=== PATIENT | female | born 1950 | race Caucasian/White ===

== ENCOUNTER 2017-06-25 07:36 | Inpatient (IN) | payer OTHER ==
[2017-06-04 11:18] VITALS: BMI 31.0
--- NOTE | 2017-06-04 11:44 | PAT Medication Instructions ---
Service Date Jun 04, 2017. Current Home Medication List Cholecalciferol (D3), 3,000 INTERUNIT PO QAM Citalopram (Citalopram Hydrobromide), 40 MG PO QAM Cyanocobalamin (B12), 1 TAB PO QAM Levothyroxine Sodium (Synthroid), 25 MCG PO QAM Sumatriptan Succinate (Imitrex), 100 MG PO UD PRN for Headache Medication Instructions For Your Scheduled Surgery - Hold the following medications the morning of surgery: Cholecalciferol (D3), 3,000 INTERUNIT PO QAM Cyanocobalamin (B12), 1 TAB PO QAM - Take the following medications the morning of surgery with a sip of water: Citalopram (Citalopram Hydrobromide), 40 MG PO QAM Levothyroxine Sodium (Synthroid), 25 MCG PO QAM Sumatriptan Succinate (Imitrex), 100 MG PO UD PRN for Headache (if needed) - Take the following medications as scheduled the night before surgery: Sumatriptan Succinate (Imitrex), 100 MG PO UD PRN for Headache (if needed) If you have any questions please call us at [phone] or [phone] or [phone]
--- NOTE | 2017-06-04 12:38 | DIAGNOSTIC IMAGING REPORT ---
CHEST 2 VIEWS ROUTINE CLINICAL HISTORY: Preoperative chest COMPARISON STUDY: 11/23/2015 FINDINGS: The cardiac and mediastinal contours are normal. There is no evidence of focal pulmonary consolidation. There is no evidence of failure. No pleural effusions are visualized.[ There are multiple old left-sided rib fractures. These were not visualized the prior 2016 study. IMPRESSION: No active disease in the chest. Electronically signed by: Antoni Chaudhary M.D. 06/04/2017 12:36 PM Dictated Date/Time: 06/04/2017 12:35 PM
[2017-06-04 13:29] LABS: PTT PATIENT 26.8 SECONDS (21.0-31.0)
[2017-06-04 13:43] LABS: BASO % 0.2 %; BASO ABS # 0.01 K/uL (0-0.2); EOS % 1.9 %; HEMATOCRIT 37.3 % (37-47); HEMOGLOBIN 12.8 g/dL (12.0-16.0); IG# 0.01 K/uL (0.00-0.02); LYMPH % 32.8 %; LYMPH ABS # 1.69 K/uL (1.2-3.4); MEAN CELL VOLUME 91.9 fL (80-100); MEAN CORPUSCULAR HEMOGLOBIN 31.5 pg (25-34); MEAN CORPUSCULAR HGB CONC 34.3 g/dl (32-36); MEAN PLATELET VOLUME 11.1 fL (7.4-10.4); MONO % 10.1 %; MONO ABS # 0.52 K/uL (0.11-0.59); NEUT % 54.8 %; NEUT ABS # 2.83 K/uL (1.4-6.5); PLATELET COUNT 97 K/uL (130-400); RED CELL DISTRIBUTION WIDTH CV 13.7 % (11.5-14.5); RED CELL DISTRIBUTION WIDTH SD 45.9 fL (36.4-46.3); WHITE BLOOD COUNT 5.16 K/uL (4.8-10.8)
[2017-06-04 14:02] LABS: HEMOGLOBIN A1C 5.1 % (4.5-5.6)
[2017-06-04 14:38] LABS: ALBUMIN 3.5 gm/dl (3.4-5.0); CALCIUM 8.9 mg/dl (8.5-10.1); CREATININE 0.67 mg/dl (0.60-1.20)
--- NOTE | 2017-06-12 10:30 | HISTORY & PHYSICAL EXAMINATION ---
DATE OF ADMISSION: 06/25/2017 CHIEF COMPLAINT: Left knee pain. HISTORY OF PRESENT ILLNESS: Natalia is a 67-year-old female with a multiple year history of left knee pain. The patient has pain with her daily activities. She has limited standing and walking tolerance. Pain is worse with weightbearing. The patient has worsening pain going up the stairs. She rates her pain as 7/10. She has had injections and anti-inflammatories without relief. She has failed conservative treatment and is scheduled for left knee replacement with Dr. Taylor. PAST MEDICAL HISTORY: Thyroid disease. She denies heart disease, diabetes, or DVT. PAST SURGICAL HISTORY: . SOCIAL HISTORY: The patient denies alcohol or tobacco use. She lives in a single sony home. She is and works part-time. FAMILY HISTORY: Negative for DVT. MEDICATIONS: Levothyroxine 25 mcg daily. ALLERGIES: PENICILLIN CAUSES DIARRHEA. REVIEW OF SYSTEMS: See HPI. Ten other systems reviewed, all negative. PHYSICAL EXAMINATION: VITAL SIGNS: Height 5 foot 4 inches, weight 188 pounds, BMI 32. GENERAL: This is a well-developed, well-nourished female who is alert and oriented x3. Mood and affect are appropriate. HEENT: Normocephalic, atraumatic. Mucous membranes are moist and intact. NECK: Supple without lymphadenopathy. HEART: Regular rate and rhythm without murmurs, rubs, or gallops. LUNGS: Clear to auscultation without wheezes or rhonchi. ABDOMEN: Soft and nontender. Bowel sounds are equal and active. EXTREMITIES: No ecchymosis, redness, or warmth. Thigh and calf are soft and nontender. She has moderate effusion. She has no distal edema. She has varus deformity. Range of motion is from 0-115 degrees with +1 laxity. She is neurovascularly intact with +5/5 strength. X-RAY EXAMINATION: AP and lateral views show joint space narrowing and osteophyte formation. IMPRESSION: Degenerative joint disease, left knee. PLAN: The patient will be admitted for a left total knee arthroplasty. We will plan on aspirin for DVT prophylaxis and she will have [facility] for home physical therapy upon discharge. Her PCP is Dr. Maldonado.
[2017-06-25] VITALS (9 sets, daily range): BP systolic 98–122; BP diastolic 61–76; PULSE 59–84; TEMP 36.5–36.8; O2SAT 94–99; Ht 162.6 cm; Wt 84.0 kg
[~2017-06-25] VITALS: Ht 162.6 cm; Wt 84.0 kg
[~2017-06-25 07:36] MED LIST: ACETAMINOPHEN 500 MG TAB PO SCH; BUPIVACAINE 0.5 % 5 MG/1 ML PF 10ML VIAL ONE; CEFAZOLIN 2000MG IV PUSH 15 ML IV SCH; CHOL1CAP27 PO; CLX40 PO; CYAN100073 PO; CeleBREX 200 MG CAP PO SCH; DEXAMETHASONE 4 MG TAB PO SCH; FAMOTIDINE 20 MG TAB PO SCH; GABAPENTIN 300 MG CAP PO SCH; LACTATED RINGER'S 1000ML 1,000 ML IV SCH; LACTATED RINGER'S 1000ML 500 ML IV SCH; ROPIVACAINE 5MG/ML 30 ML 150 MG, BUPIVACAINE 0.5% MPF INJ 30 ML, EpINEphrine HCL INJ 0.... INFIL SCH; SUMA25TA12 PO; SYN25 PO
[2017-06-25] MEDS ORDERED: MIDAZOLAM HCL 1 MG/ML 2ML VIAL ONE (07:57)
[2017-06-25] MEDS ORDERED: FENTANYL CITRATE INJ 50 MCG/1 ML 2 ML VIAL ONE (07:57)
[2017-06-25] MEDS ORDERED: FENTANYL CITRATE INJ 50 MCG/1 ML 2 ML VIAL IV PRN (08:30)
[2017-06-25] MEDS ORDERED: ONDANSETRON INJ 2 MG/ML 2 ML VIAL IV PRN ×2 (08:30→11:30)
[2017-06-25] MEDS ORDERED: EpHEDrine SULFATE INJ 50 MG/ML AMP IV PRN (08:30)
[2017-06-25] MEDS ORDERED: ATROPINE SULFATE 0.1 MG/ML 5ML SYR IV PRN (08:30)
[2017-06-25 08:35] LABS: HEMATOCRIT 36.6 % (37-47); HEMOGLOBIN 12.6 g/dL (12.0-16.0); MEAN CELL VOLUME 91.7 fL (80-100); MEAN CORPUSCULAR HEMOGLOBIN 31.6 pg (25-34); MEAN PLATELET VOLUME 10.5 fL (7.4-10.4); PLATELET COUNT 109 K/uL (130-400); RED CELL DISTRIBUTION WIDTH CV 13.7 % (11.5-14.5); RED CELL DISTRIBUTION WIDTH SD 45.4 fL (36.4-46.3); WHITE BLOOD COUNT 4.02 K/uL (4.8-10.8)
[2017-06-25 08:40] LABS: MEAN CORPUSCULAR HGB CONC 34.4 g/dl (32-36)
--- NOTE | 2017-06-25 08:47 | History & Physical Bridge Note ---
H&P Re-Evaluation Bridge Note: I have examined the patient, reviewed the History & Physical and in the interval since the performance of the History & Physical I have noted the following changes of clinical significance: No changes noted
[2017-06-25] MEDS ORDERED: ORTHO JOINT ANESTHETIC ONE (09:34)
[2017-06-25] MEDS ORDERED: POVIDONE-IODINE OP SOLN 30 ML BTL ONE (09:35)
[2017-06-25] MEDS ORDERED: BACITRACIN 50000 UNIT VIAL ONE (09:35)
[2017-06-25] MEDS: TRANEXAMIC ACID INJ 1,000 MG x 2 Bags IV SCH ×4 (09:36→13:59)
[2017-06-25] MEDS ORDERED: PROPOFOL IV EMULSION 10 MG/ML 20 ML VIAL IV ONE (10:06)
--- NOTE | 2017-06-25 10:44 | [facility] Post Operative Brief Note ---
Immediate Operative Summary Operative Date Jun 25, 2017. Pre-Operative Diagnosis Left Knee Degenerative Joint Disease Post-Operative Diagnosis Left Knee Degenerative Joint Disease Procedure(s) Performed Left Total Knee Arthroplasty Surgeon Dr. Taylor Radiographer Angiogram Surgeon(s) Chuy Puri PA-C Estimated Blood Loss 10 ml Findings Consistent with Post-Op Diagnosis Specimens A. Left Knee bone and tissue Anesthesia Type MAC Spinal Regional Complication(s) none Disposition Accompanied Pt To Recover: no Disposition: Recovery Room / PACU
--- NOTE | 2017-06-25 11:10 | OPERATIVE REPORT ---
DATE OF OPERATION: 06/25/2017 PREOPERATIVE DIAGNOSIS: Osteoarthritis, left knee. POSTOPERATIVE DIAGNOSIS: Osteoarthritis, left knee. PROCEDURE: Left total knee arthroplasty. SURGEON: Dr. Taylor. DIFFERENTIAL SPECIALIST: Chuy Nieves PA-C. ANESTHESIA: Spinal. COMPLICATIONS: None. IMPLANTS USED: Femoral size 3, tibia size 3, tibial poly 13, patella size 36. DISPOSITION: Recovery room, stable. OPERATION AND FINDINGS: Following induction of spinal anesthesia, the patient's left leg was prepped and draped in the usual sterile manner. Limb was exsanguinated with an Esmarch bandage and tourniquet was inflated to 350 mmHg. A longitudinal incision was made anteriorly. Subcutaneous tissue was sharply dissected. Electrocautery was used for hemostasis. Prepatellar bursa was incised and median parapatellar incision was performed. Patella was everted and the knee was flexed. Fat pad was removed to aid in visualization and the anterior and posterior cruciate ligaments were removed. The medial face of the tibia was cleared of soft tissue first with a Bovie and a Torrez elevator. This tissue was retracted posteriorly using a blunt Hohmann. A Marcus retractor was used to expose the synovium above on the anterior aspect of the femur and this was removed down to bone. The PSI guide was placed on the distal femur and two pins were placed anteriorly and kept in position and two additional pins were placed distally and removed. The distal femoral cutting block was placed in position and the distal femoral cut was used in the +0 setting. Next, the cutting block was removed and the femoral 3 block was placed in the distal end of the femur. Care was taken to ensure appropriate external rotation and feeler gauge was used to ensure no notching would occur. The femoral block was centered on the distal femur and in the medial and lateral direction and was fixed using two bone screws. The gold pins were then removed. The oscillating saw was used to create the bone cuts and the distal femoral cutting block was removed and the reciprocating saw was used to further trim the femoral cuts as well as a deep in the area for the trochlear groove. Next, posterior condyle remnants were removed. Following this, a meniscal clamp and knife were utilized to remove the anterior portion of both medial and lateral meniscus. The proximal tibia PSI guide was placed into position and the proximal tibial cutting guide was screwed into position. The extra medullary alignment guide was utilized to ensure appropriate alignment. The proximal tibia was cut and the proximal tibial cutting block was removed and this bone fragment was removed. The appropriate guide was used to perform the notch cut on the distal femur and a lamina blacksmith helper and a cochlear knife were utilized to finish both medial and lateral meniscectomies to remove any remnants of the posterior or anterior cruciate ligaments. Following this, the distal femoral component was impacted into position and blunt Miriam was used to sublux the tibia anteriorly. The proximal tibia was sized and a 3 tibial tray was chosen as the size to be used. This was put into position and appropriate external rotation and a double check with extramedullary alignment guide was performed. The canal for the tibial stem was prepared first with a 17 mm drill and then the punch and a mallet and the trial tibial poly was placed. A 13 was chosen the size to be used. It was brought to extension and the patella was prepared with the patellar reamer. A 36 component was chosen the size to be used. The trial component was placed and knee was taken through a full range of motion and there was found to be no lateral subluxation of the tibia. No lateral release was required. The trials were all removed. The final components were obtained and assembled. Cement was mixed. The knee was thoroughly irrigated and the ortho mix was injected about the knee joint. The final components were cemented into position. After thoroughly suctioning and drying the bone ends, all excess cement was removed. The knee was held in extension while the cement hardened. The wound was irrigated and closed over a Hemovac drain. #1 Vicryl was used to close the extensor mechanism. Subcutaneous tissues closed using 0 Dexon. Skin was closed with ceci. Sterile dressing of Adaptic, 4 x 4's, sterile Webril, and Elvin was applied. The patient tolerated the procedure well. Due to the complex nature of the procedure, the entire surgery was performed with the operational assistance of DELORIS Nieves. The study assistant, under direct supervision, was involved in the actual performance of all aspects of the surgical procedure including hemostasis, tissue retraction and incision, instrument management, patient positioning, and wound closure. I attest to the content of the Intraoperative Record and any orders documented therein. Any exception s are noted below.
[2017-06-25] MEDS ORDERED: ALUMINUM/MAGNESIUM/SIMETH (MAALOX MAX) 30 ML UDC PO PRN (11:30)
[2017-06-25] MEDS ORDERED: ZOLPIDEM TARTRATE 5 MG TAB PO PRN (11:30)
[2017-06-25] MEDS ORDERED: MoRPHine SULFATE 2 MG/ML CARP IV PRN (11:30)
[2017-06-25] MEDS ORDERED: MAGNESIUM HYDROXIDE SUSP 30 ML UDC PO PRN (11:30)
[2017-06-25] MEDS ORDERED: METOCLOPRAMIDE HCL INJ 5 MG/ML 2 ML VIAL IV PRN (11:30)
--- NOTE | 2017-06-25 11:55 | DIAGNOSTIC IMAGING REPORT ---
L KNEE 1 OR 2 VIEWS ROUTINE CLINICAL HISTORY: Postop examination KNEE ARTHROPLASTY. COMPARISON: None. DISCUSSION: There are postsurgical changes of a total left knee arthroplasty and patellar resurfacing. The femoral and tibial components appear well seated. Overlying surgical drains are evident. There is air within soft tissues consistent with recent surgery. IMPRESSION: Postsurgical changes of a total left knee arthroplasty. Electronically signed by: Antoni Chaudhary M.D. 06/25/2017 11:54 AM Dictated Date/Time: 06/25/2017 11:53 AM
--- NOTE | 2017-06-25 12:25 | Anesthesiology Progress Note ---
Anesthesia Post Op Note Date & Time Jun 25, 2017 at 12:25 Vital Signs Pain Intensity: 0 Vital Signs Past 12 Hours Date Time Temp Pulse Resp B/P (MAP) Pulse Ox O2 Delivery O2 Flow Rate FiO2 06/25/17 12:20 75 16 117/78 96 Nasal Cannula 2 06/25/17 12:10 78 16 124/66 97 Nasal Cannula 2 06/25/17 12:00 37.4 76 16 111/73 98 Nasal Cannula 2 06/25/17 11:50 74 16 121/75 98 Nasal Cannula 2 06/25/17 11:40 76 16 117/73 97 Nasal Cannula 2 06/25/17 11:30 63 16 100/74 99 Nasal Cannula 2 06/25/17 11:20 65 16 108/67 99 Nasal Cannula 2 06/25/17 11:14 36.5 77 16 99/59 97 Nasal Cannula 2 06/25/17 08:20 97 Room Air Notes Mental Status: alert / awake / arousable, participated in evaluation Pt Amnestic to Procedure: Yes Nausea / Vomiting: adequately controlled Pain: adequately controlled Airway Patency, RR, SpO2: stable & adequate BP & HR: stable & adequate Hydration State: stable & adequate Neuraxial Anesthesia: was administered, sensory block is resolving Anesthetic Complications: no major complications apparent
[2017-06-25] MEDS: D5W AND 1/2NSS + 20MEQ KCL 1,000 ML IV SCH ×2 (13:58→22:56)
[2017-06-25] MEDS: KETOROLAC TROMETHAMINE 15 MG/ML VIAL IV. SCH ×2 (13:58→20:30)
[2017-06-25] MEDS: ACETAMINOPHEN 500 MG TAB PO SCH ×2 (15:54→22:55)
[2017-06-25] MEDS: OXYCODONE HCL IR 5 MG TAB (IMMEDIATE RELEASE) PO PRN (17:29)
[2017-06-25] MEDS: CEFAZOLIN IV 2,000 MG in SYRINGE 0 ML IV SCH (17:30)
[2017-06-25] MEDS: FERROUS GLUCONATE 324 MG TAB PO SCH (17:30)
[2017-06-25] MEDS ORDERED: CEFAZOLIN IV 2,000 MG in DEXTROSE 5% 50ML 50 ML IV SCH (18:00)
[2017-06-25] MEDS: DOCUSATE SODIUM 100 MG CAP PO SCH (20:29)
[2017-06-25] MEDS: ASPIRIN 81 MG ECTAB PO SCH (20:30)
[2017-06-26] MEDS: KETOROLAC TROMETHAMINE 15 MG/ML VIAL IV. SCH ×2 (01:37→09:10)
[2017-06-26] MEDS: CEFAZOLIN IV 2,000 MG in SYRINGE 0 ML IV SCH (01:38)
[2017-06-26 03:19] VITALS: BP 116/70; PULSE 66; TEMP 36.6; O2SAT 97
[2017-06-26] MEDS ORDERED: LEVOTHYROXINE 25 MCG TAB PO SCH (06:00)
[2017-06-26 07:09] LABS: HEMATOCRIT 31.6 % (37-47); HEMOGLOBIN 10.8 g/dL (12.0-16.0); MEAN CELL VOLUME 91.9 fL (80-100); MEAN CORPUSCULAR HEMOGLOBIN 31.4 pg (25-34); MEAN CORPUSCULAR HGB CONC 34.2 g/dl (32-36); RED CELL DISTRIBUTION WIDTH CV 13.6 % (11.5-14.5); RED CELL DISTRIBUTION WIDTH SD 45.5 fL (36.4-46.3); WHITE BLOOD COUNT 9.64 K/uL (4.8-10.8)
[2017-06-26 07:12] LABS: MEAN PLATELET VOLUME 11.4 fL (7.4-10.4); PLATELET COUNT 84 K/uL (130-400)
[2017-06-26 07:16] VITALS: BP 114/75; PULSE 57; TEMP 36.8; O2SAT 96
--- NOTE | 2017-06-26 07:16 | Orthopedic Progress Note ---
Orthopedic Progress Note Date of Service Jun 26, 2017. Subjective Post OP Day: 1 Reports: feeling well Objective N/V intact, dressing C/D/I (Hemovac in place), toes mobile Date Time Temp Pulse Resp B/P (MAP) Pulse Ox O2 Delivery O2 Flow Rate FiO2 06/26/17 03:19 36.6 66 18 116/70 (85) 97 Room Air 06/25/17 23:15 36.8 69 17 111/67 (82) 95 Room Air 06/25/17 19:35 Room Air 06/25/17 19:08 36.5 63 16 107/71 (83) 94 Room Air 06/25/17 15:50 Nasal Cannula 06/25/17 15:41 36.8 84 16 102/65 (77) 96 Nasal Cannula 2.0 06/25/17 14:39 59 16 98/61 (73) 97 Nasal Cannula 2.0 06/25/17 14:06 Nasal Cannula 2.0 06/25/17 14:05 36.8 78 16 122/76 (91) 96 Nasal Cannula 2.0 06/25/17 14:04 96 Nasal Cannula 2.0 06/25/17 13:40 81 16 110/64 (79) 97 Nasal Cannula 2.0 06/25/17 13:12 36.8 77 16 116/73 (87) 99 Nasal Cannula 2.0 06/25/17 12:30 37 75 16 113/68 96 Nasal Cannula 2 06/25/17 12:20 75 16 117/78 96 Nasal Cannula 2 06/25/17 12:10 78 16 124/66 97 Nasal Cannula 2 06/25/17 12:00 37.4 76 16 111/73 98 Nasal Cannula 2 06/25/17 11:50 74 16 121/75 98 Nasal Cannula 2 06/25/17 11:40 76 16 117/73 97 Nasal Cannula 2 06/25/17 11:30 63 16 100/74 99 Nasal Cannula 2 06/25/17 11:20 65 16 108/67 99 Nasal Cannula 2 06/25/17 11:14 36.5 77 16 99/59 97 Nasal Cannula 2 06/25/17 08:20 97 Room Air Laboratory Results 24 Hours: Test 06/25/17 08:14 06/26/17 06:08 Hematocrit 36.6 % 31.6 % Hemoglobin 12.6 g/dL 10.8 g/dL Assessment & Plan Assessment: 67 yo female stable POD #1 s/p left TKA, thrombocytopenia noted(present pre-op as well) Plan: 1. Med management 2. DVT prophy;axis- ASA, SCDs 3. PT/OT 4. D/C planning- home w/ HH today/tomorrow
[2017-06-26] MEDS ORDERED: ACET-24 PO (07:18)
[2017-06-26] MEDS ORDERED: ASPI-320 PO (07:18)
[2017-06-26] MEDS ORDERED: RXC5 PO (07:18)
[2017-06-26] MEDS ORDERED: CLB200 PO (07:18)
--- NOTE | 2017-06-26 07:20 | Discharge Instructions ---
Discharge Instructions Date of Service Jun 26, 2017. Admission Reason for Admission: Left Knee Osteoarthritis Discharge Discharge Diagnosis / Problem: Left knee arthritis Discharge Goals Goal(s): Decrease discomfort, Improve function Activity Recommendations Activity Limitations: as noted below Weightbearing Status: Left weightbearing (as tolerated) . Instructions / Follow-Up Instructions / Follow-Up ACTIVITY RECOMMENDATIONS: SELF CARE INSTRUCTIONS AFTER TOTAL KNEE REPLACEMENT A. You may need to continue a physical therapy program after discharge from the hospital. There are several options available to you. Your doctor will assist you in selecting the best one for you. 1. An out-patient facility 2 to 3 times a week for therapy or home therapy. 2. Continue working on all exercises taught to you in the hospital. Your goals should be to increase bending of your knee to 90 degrees and beyond and to fully straighten your knee. B. You may progress at your own pace from walking with a walker or crutches to a cane; then to no assistive devices. C. Make walking a part of your daily routine. Be up as much as comfortable with rest periods throughout the day. Rest with leg elevation is very important. Use the ice wrap frequently for the first 3-4 weeks. D. There are no restrictions on activities. You may ride in a car, shop, participate in cannon pinion adjuster and all social activities. E. Wear the long elastic stockings (MARTÍN hose) 20 hours a day for 2 weeks after surgery. They can be removed several times a day for laundering and for a bath. F. You may shower, no tub baths until cleared by your doctor. SPECIAL CARE INSTRUCTIONS: VERY IMPORTANT TO READ AND REVIEW A. There are a few signs you need to watch for after you are home. Call [facility] if you notice any of the followin. Increased severe knee pain. Some pain is expected especially when you exercise. 2. Increased swelling in your leg or knee; pain or swelling of the calf muscle in either lower leg. 3. Any fluid drainage from the incision. 4. Shortness of breath or chest pain. B. Please call [facility] at if you have any concerns or questions about your operation or recovery. The doctor or his nurse will return your call promptly. C. You must take antibiotics before dental work, bladder, bowel or other surgery. Your doctor will provide you with a permanent care to carry describing this precaution. IMPORTANT: * REMEMBER TO TAKE ASPIRIN, 81 MG, TWICE DAILY FOR 4 WEEKS UNLESS OTHERWISE DIRECTED. THIS IS YOUR BLOOD THINNER. * HIGH RISK PATIENTS MAY BE PRESCRIBED A STRONGER BLOOD THINNER. THIS WILL BE PROVIDED AT DISCHARGE. * CALL IF INCREASED PAIN, REDNESS, DRAINAGE OR FEVER GREATER THAT 101. * WEAR MARTÍN HOSE 20 HOURS PER DAY FOR 2 WEEKS. * HOME HEALTH TO REMOVE DRESSING AND DRAIN POST-OP DAY 2. FOLLOW UP VISIT: If appointment is not already scheduled: Please call [facility] to make a follow-up appointment for 2 weeks after your surgery at . Current Hospital Diet Patient's current hospital diet: Regular Diet Discharge Diet Recommended Diet: Regular Diet Procedures Procedures Performed: Left Total Knee Arthroplasty Pending Studies Studies pending at discharge: no Laboratory Results Hemoglobin A1c Test 06/04/17 11:53 Range/Units Estimated Average Glucose 100 mg/dl Hemoglobin A1c 5.1 4.5-5.6 % Medical Emergencies . Who to Call and When: Medical Emergencies: If at any time you feel your situation is an emergency, please call 911 immediately. . Non-Emergent Contact Non-Emergency issues call your: Surgeon Call Non-Emergent contact if: temperature is above 101.5, your pain is not controlled, wound has increased drainage, wound has increased redness . "Provider Documentation" section prepared by Chuy Nieves PA-C. . [facility] Monitoring Program Search Results: patient reviewed within database, no issues identified
--- NOTE | 2017-06-26 07:28 | Anesthesiology Progress Note ---
Anesthesia Post Op Note Date & Time Jun 26, 2017 at 07:27 Vital Signs Pain Intensity: 3.0 Vital Signs Past 12 Hours Date Time Temp Pulse Resp B/P (MAP) Pulse Ox O2 Delivery O2 Flow Rate FiO2 06/26/17 07:16 36.8 57 17 114/75 (88) 96 Room Air 06/26/17 03:19 36.6 66 18 116/70 (85) 97 Room Air 06/25/17 23:15 36.8 69 17 111/67 (82) 95 Room Air 06/25/17 19:35 Room Air Notes Mental Status: alert / awake / arousable, participated in evaluation Pt Amnestic to Procedure: Yes Nausea / Vomiting: adequately controlled Pain: adequately controlled Airway Patency, RR, SpO2: stable & adequate BP & HR: stable & adequate Hydration State: stable & adequate Neuraxial Anesthesia: was administered, sensory block resolved Anesthetic Complications: no major complications apparent
[2017-06-26] MEDS ORDERED: DEXAMETHASONE INJ 10 MG in SYRINGE 0 ML IV ONE (07:30)
[2017-06-26 07:39] LABS: CALCIUM 7.9 mg/dl (8.5-10.1); CREATININE 0.77 mg/dl (0.60-1.20); POTASSIUM 4.5 mmol/L (3.5-5.1)
[2017-06-26] MEDS ORDERED: CYANOCOBALAMIN 500 MCG TAB (VIT B-12) PO SCH (09:00)
[2017-06-26] MEDS ORDERED: CITALOPRAM 40 MG TAB PO SCH (09:00)
[2017-06-26] MEDS ORDERED: MULTIVITAMIN TAB PO SCH (09:00)
[2017-06-26] MEDS ORDERED: CHOLECALCIFEROL 1000 INTER.UNIT TAB PO SCH (09:00)
[2017-06-26] MEDS ORDERED: PANTOprazole SOD 40 MG TAB PO SCH (09:00)
[2017-06-26] MEDS: ACETAMINOPHEN 500 MG TAB PO SCH ×2 (09:11→16:34)
[2017-06-26] MEDS: FERROUS GLUCONATE 324 MG TAB PO SCH ×2 (09:11→13:25)
[2017-06-26] MEDS: DOCUSATE SODIUM 100 MG CAP PO SCH (09:12)
[2017-06-26] MEDS: ASPIRIN 81 MG ECTAB PO SCH (09:12)
[2017-06-26] MEDS: OXYCODONE HCL IR 5 MG TAB (IMMEDIATE RELEASE) PO PRN ×2 (09:15→16:35)
[2017-06-26 11:09] VITALS: BP 98/60; PULSE 61; TEMP 36.7; O2SAT 96
[2017-06-26 14:59] VITALS: BP 118/74; PULSE 54; TEMP 36.8; O2SAT 97
[2017-06-26 16:38] VITALS: BP 118/74; PULSE 54; TEMP 36.8; O2SAT 97
[2017-06-26] MEDS ORDERED: CeleBREX 200 MG CAP PO SCH (21:00)
--- NOTE | 2017-07-01 16:01 | DISCHARGE SUMMARY ---
CHIEF COMPLAINT: Left knee pain. Please see complete history and physical examination. HOSPITAL COURSE: The patient underwent left total knee arthroplasty without complication. She tolerated the procedure well and was discharged to recovery room in stable condition. Her postoperative course was relatively uneventful. Her postoperative pain was reasonably well controlled with a combination of spinal anesthesia, adductor canal block, intraoperative joint injection, IV, and oral pain medications. She was started on aspirin for DVT prophylaxis. She also utilized MARTÍN stockings and SCDs for additional prophylaxis. Her H&H was stable and did not require transfusion. Her surgical drain will be discontinued by home nursing on postoperative day 2. She tolerated postop physical therapy reasonably well where she was bending her knee and ambulating appropriately. Discharged home on postoperative day 1. She will continue her physical therapy at home. She will continue her aspirin for DVT prophylaxis and follow up in our office in approximately 10-14 days for initial postop evaluation.
== END 2017-06-26 17:25 | disposition home health service (06) | DRG 470 ==
LOC: C.ACU 07:36 → C.3E 09:25 → ENRESERV 11:58
PROC: 0SRD0J9 Replacement of Left Knee Joint with Synthetic Substitute, Cemented, Open Approach (ICD-10-PCS; principal; 2017-06-25 10:00)
DX: M17.12 Unilateral primary osteoarthritis, left knee (principal); E07.9 Disorder of thyroid, unspecified; D69.6 Thrombocytopenia, unspecified

== ENCOUNTER 2019-12-08 11:36 | Inpatient (IN) ==
[2019-12-08] MEDS ORDERED: LORazepam 1 MG/2 ML VIAL IV STA (13:29)
[2019-12-08] MEDS ORDERED: SODIUM CHLORIDE 0.9% 1000ML 1,000 ML IV SCH (13:30)
--- NOTE | 2019-12-08 14:28 | CT Scan Report ---
CT head/brain wo con CLINICAL HISTORY: 69 years-old Female with insomnia, dizzy, nausea. Acute dizziness with nausea and insomnia TECHNIQUE: Multiple axial CT images of the head were obtained without contrast. A dose lowering tech nique was utilized adhering to the principles of ALARA. CT DOSE: 537.48 mGy.cm COMPARISON: Head CT 02/12/2016 FINDINGS: No acute intracranial hemorrhage, midline shift, intracranial mass, hydrocephalus, territorial ischem ia or abnormal extra-axial collection. Mild age-related involutional changes. Senescent calcification s of the lentiform nuclei. Mild patchy white matter hypodensities suggest probable chronic microvascu lar ischemic changes. Calcifications of the falx cerebri. Cerebral vascular calcifications. The calvarium is intact. The paranasal sinuses, mastoid air cells, and middle ear cavities are clear . IMPRESSION: No acute intracranial abnormality. ACT 112: Negative or not required by law. The above report was generated using voice recognition software. It may contain grammatical, syntax o r spelling errors. Electronically signed by: Mitch Jordan M.D. 12/08/2019 2:27 PM
[2019-12-08 14:50] LABS: Albumin Level 4.3 gm/dl (3.4-5.0); BUN Creatinine Ratio 17.4 (10-20); Calcium 8.8 mg/dl (8.5-10.1); Creatinine Clr Calc Pharmacy 58.3 ml/min; Est GFR (African American) 74.6; Est GFR (Non-African American) 64.3; Potassium 3.3 mmol/L (3.5-5.1)
[2019-12-08 14:51] LABS: Basophils # (auto) 0.01 K/uL (0-0.2); Basophils % (auto) 0.2 %; Eosinophils # (auto) 0.03 K/uL (0-0.5); Eosinophils % (auto) 0.7 %; Hematocrit (blood only) 43.2 % (37-47); Hemoglobin 14.6 g/dL (12.0-16.0); Lymphocytes # (auto) 0.89 K/uL (1.2-3.4); Lymphocytes % (auto) 21.9 %; Mean Corpuscular Hemoglobin 32.7 pg (25-34); Mean Corpuscular Hgb Conc 33.8 g/dL (32-36); Mean Corpuscular Volume 96.6 fL (80-100); Mean Platelet Volume 9.7 fL (7.4-10.4); Monocytes # (auto) 0.43 K/uL (0.11-0.59); Monocytes % (auto) 10.6 %; Neutrophils % (auto) 66.6 %; Platelet Count 77 K/uL (130-400); RDW Coefficient of Variation 14.9 % (11.5-14.5); Red Blood Count 4.47 M/uL (4.2-5.4); White Blood Count 4.06 K/uL (4.8-10.8)
[2019-12-08] MEDS ORDERED: MULTI-VITAMIN INFUSION 10 ML, THIAMINE HCL 100 MG, FOLIC ACID 1 MG in SODIUM CHLORIDE 0... IV ONE (14:59)
[2019-12-08 15:00] LABS: Albumin Globulin Ratio 1.2 (0.9-2); Bilirubin,Total 1.7 mg/dl (0.2-1); Globulin 3.7 gm/dl (2.5-4.0); Thyroid Stimulating Hormone 0.326 uIu/ml (0.300-4.500)
--- NOTE | 2019-12-08 15:30 | Emergency Department Note ---
Impression & Plan Alcohol intoxication, Anxiety, Insomnia, Decreased oral intake, Light-headed ED Provider Note Provider: Huber Zhou MD DATE OF SERVICE:12/08/2019 CHIEF COMPLAINT: Insomnia, decreased appetite, lightheadedness anxiety HISTORY OF PRESENT ILLNESS: Patient is a 69-year-old female with a history of hypothyroidism, migraine, alcohol abuse presenting with her today over the past 2 weeks has had significant insomnia not really sleeping at night as well as feeling disoriented lightheaded. Patient denies any significant trauma. Patient states social stress due to the current pandemic. States she is fallen off the wagon of 4 years and started drinking yesterday last drink she initially reported to me was yesterday evening about 6 ounces of hard liquor. States she has had complicated alcohol withdrawal in the past including seizure. Patient denies any pain at this time. Denies significant nausea. States she just does not feel hungry and feels quite unsettled and is pacing in the room. Denies any SI or HI to me. Has not talked to her doctor about this before. Patient states she has been stable on her dose of citalopram. No other recent medication changes. States she has been doing virtual AA. States sometimes when she closes eyes she is seeing weird figures and persons. REVIEW OF SYSTEMS: A total of 10 review of systems was obtained and negative except as stated above in the HPI. 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 PERRL NECK: Trachea midline. Supple. ENT: Mucous membranes pink and moist LUNGS: Airway patent. No retractions. Breath sounds clear HEART: Regular rate and rhythm. No chest wall tenderness ABDOMEN: Soft and non-tender, without guarding or rebound. SKIN: Acyanotic, warm, dry, without rashes EXTREMITIES: Without swelling, tenderness or deformity NEUROLOGICAL: No focal deficits. No aphasia. No facial droop but mildly slurred speech. Ambulatory. Psych: Denies SI or HI. States sometimes with close denies using some visual hallucinations but denies auditory elucidation. Endorses significant anxiety. EK bpm sinus rhythm with sinus arrhythmia. No PVC. No acute ST segment elevation or depression. V1 V2 T wave inversion. Normal QTC CONTINUOUS CARDIAC MONITORING: was ordered and showed a heart rate of 78 bpm in normal sinus rhythm Patient's laboratory studies and imaging reviewed. Differential includes Infection, dehydration, metabolic abnormality, hypo/hyperglycemia, electrolyte disturbance, anemia, hypoxia, cardiac sources, intracerebral event, toxicologic, neurologic, as well as other pathologies. IMPRESSION/MEDICAL DECISION MAKIN-year-old female history of alcohol issues presents here due to insomnia decreased appetite and lightheadedness as well as anxiety last several weeks. States she started abuse alcohol again yesterday. Seemed a little bit anxious and with some slightly slurred speech upon evaluation here and does appear unfortunately to have a detectable alcohol level of 204. Discussed with her again her lack alcohol intake and the timing keeps changing. Does have a complicated history of alcohol withdrawal. CT without acute intracranial changes noted her head bleed per radiology. Did review the images myself. Blood work shows evidence of alcohol intoxication with mild hypokalemia and mild transaminitis. Patient not having significant abdominal discomfort and doubt acute biliary tract obstruction. No significant cytosis actually slightly leukopenic. Patient given some Ativan with improvement of her anxiety is now resting in bed on reassessment. Question if her symptoms are related to worsen anxiety or alcohol abuse. Does have anion gap and I question if this is related to decreased oral intake with her alcohol abuse. Thrombocytopenia is noted again question if is related to liver function. Patient has a benign abdomen without any tenderness. Given a banana bag and some IV fluid. Given the patient's hallucination changes are significant history of complicated alcohol withdrawal as well as decreased intake recently do not feel that discharge home would be successful with likely rapid return. Discussed with patient and who are in agreement with staying for further evaluation. Discussed with the hospitalist further evaluation. Patient may benefit for inpatient rehab. DIAGNOSIS: Lightheadedness, insomnia, decreased intake, alcohol intoxication, anxiety DISPOSITION: Hospitalist will evaluate Patient was agreeable with this plan. Past Med/Surg History Medical History Anxiety Cirrhosis PER RECORDS; NO RECENT ISSUES Depression Hiatal hernia Hypothyroidism Migraine Obesity Seizure 2008 X 1 EPISODE; NO ISSUES SINCE Surgical History History of section History of colonoscopy History of total knee replacement LEFT TKA= 06/25/17= SAB X 1 ATTEMPT + PNB AT [facility] Family History Father Alzheimer disease Irregular heart rhythm Mother Age related osteoporosis Social History (Updated 12/08/19 @ 17:43 by Mary Anthony PA-C) Smoking Status: Former smoker Second Hand Exposure: No; Hx Alcohol Use: Yes Alcohol type: hard liquor Alcohol type Comment: Beni Gotti, drinking from the bottle Hx Substance Use: No Preferred Language: Setswana Communication Ability: Effective 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 Beliefs That Will Affect Care: None Current Living Situation: Spouse Other Information That Helps Us Care for You: No Feels Safe at Home: Yes Safety Concerns: Feels Safe At This Time Assistive Devices: None Allergies Allergies Allergy/AdvReac Type Severity Reaction Status Date / Time Penicillins AdvReac Severe SEVERE Verified 12/08/19 13:26 DIARRHEA Home Meds Home Medications Medication Instructions Recorded Confirmed cholecalciferol (vitamin D3) 3,000 unit PO QAM 12/02/17 12/08/19 [Vitamin D3] citalopram 40 mg PO QAM 12/02/17 12/08/19 cyanocobalamin (vitamin B-12) 1,000 mcg PO QAM 12/02/17 12/08/19 [Vitamin B-12] levothyroxine 25 mcg PO QAM 12/02/17 12/08/19 sumatriptan succinate [Imitrex] 1 tab PO UD PRN 12/02/17 12/08/19 aspirin [Ecotrin Low Strength] 81 mg PO DAILY 12/08/19 12/08/19 Results & Data (ED) Vital Signs Vital Signs - 24 hr 12/08/19 11:50 12/08/19 14:40 12/08/19 15:29 Temperature 36.5 C Temperature Source Oral Pulse Rate 96 H Pulse Rate [Apical] 87 Respiratory Rate 20 16 Respiratory Effort / Characteristics Respiratory Depth Respiratory Pattern Blood Pressure 130/81 Blood Pressure [Right Arm] 118/80 Blood Pressure Mean 97 Blood Pressure Mean [Right Arm] 92 Pulse Oximetry 96 93 95 Oxygen Delivery Method Room Air Room Air Room Air Sepsis Recent Fever Within 48 Hours No Sepsis New/Unexplained Change in Mental Status N/A Sepsis Action Taken by Nursing No Action Required 12/08/19 16:00 Temperature Temperature Source Pulse Rate Pulse Rate [Apical] 91 H Respiratory Rate 20 Respiratory Effort / Characteristics Non-Labored Spontaneous Respiratory Depth Normal Respiratory Pattern Regular Blood Pressure Blood Pressure [Right Arm] 110/63 Blood Pressure Mean Blood Pressure Mean [Right Arm] 78 Pulse Oximetry 96 Oxygen Delivery Method Room Air Sepsis Recent Fever Within 48 Hours Sepsis New/Unexplained Change in Mental Status Sepsis Action Taken by Nursing Laboratory Data Result diagrams: 12/08/19 14:14 12/08/19 14:14 Lab Results 12/08/19 12/08/19 12/08/19 Range/Units 14:14 14:14 14:14 WBC 4.06 L (4.8-10.8) K/uL RBC 4.47 (4.2-5.4) M/uL Hgb 14.6 (12.0-16.0) g/dL Hct 43.2 (37-47) % MCV 96.6 (80-100) fL MCH 32.7 (25-34) pg MCHC 33.8 (32-36) g/dL RDW Std Deviation 53.0 H (36.4-46.3) fL RDW Coeff of Artur 14.9 H (11.5-14.5) % Plt Count 77 L (130-400) K/uL MPV 9.7 (7.4-10.4) fL Immature Gran % (Auto) 0.0 % Neut % (Auto) 66.6 % Lymph % (Auto) 21.9 % [place] % (Auto) 10.6 % Eos % (Auto) 0.7 % Baso % (Auto) 0.2 % Neut # (Auto) 2.70 (1.4-6.5) K/uL Lymph # (Auto) 0.89 L (1.2-3.4) K/uL [place] # (Auto) 0.43 (0.11-0.59) K/uL Eos # (Auto) 0.03 (0-0.5) K/uL Baso # (Auto) 0.01 (0-0.2) K/uL Immature Gran # (Auto) 0.00 (0.00-0.02) K/uL PT (9.0-12.0) Seconds INR (0.9-1.1) Sodium 137 (136-145) mmol/L Potassium 3.3 L (3.5-5.1) mmol/L Chloride 97 L (98-107) mmol/L Carbon Dioxide 19 L (21-32) mmol/L Anion Gap 21.0 H (3-11) BUN 16 (7-18) mg/dl Creatinine 0.90 (0.6-1.2) mg/dl Est Cr Clr Drug Dosing 58.3 ml/min Est GFR ( Amer) 74.6 Est GFR (Non-Af Amer) 64.3 BUN/Creatinine Ratio 17.4 (10-20) Glucose 80 (70-99) mg/dl Calcium 8.8 (8.5-10.1) mg/dl Phosphorus (2.5-4.9) mg/dl Magnesium (1.8-2.4) mg/dl Total Bilirubin 1.7 H (0.2-1) mg/dl AST 161 H (15-37) U/L ALT 136 H (12-78) U/L Alkaline Phosphatase 81 (45-117) U/L Troponin I (0-0.045) ng/ml Total Protein 8.0 (6.4-8.2) gm/dl Albumin 4.3 (3.4-5.0) gm/dl Globulin 3.7 (2.5-4.0) gm/dl Albumin/Globulin Ratio 1.2 (0.9-2) Lipase (73-393) U/L TSH 0.326 (0.300-4.500) uIu/ml Salicylates Cancelled Acetaminophen Cancelled Ethyl Alcohol mg/dL (0-3) mg/dl 12/08/19 12/08/19 12/08/19 Range/Units 14:14 14:14 14:14 WBC (4.8-10.8) K/uL RBC (4.2-5.4) M/uL Hgb (12.0-16.0) g/dL Hct (37-47) % MCV (80-100) fL MCH (25-34) pg MCHC (32-36) g/dL RDW Std Deviation (36.4-46.3) fL RDW Coeff of Artur (11.5-14.5) % Plt Count (130-400) K/uL MPV (7.4-10.4) fL Immature Gran % (Auto) % Neut % (Auto) % Lymph % (Auto) % [place] % (Auto) % Eos % (Auto) % Baso % (Auto) % Neut # (Auto) (1.4-6.5) K/uL Lymph # (Auto) (1.2-3.4) K/uL [place] # (Auto) (0.11-0.59) K/uL Eos # (Auto) (0-0.5) K/uL Baso # (Auto) (0-0.2) K/uL Immature Gran # (Auto) (0.00-0.02) K/uL PT (9.0-12.0) Seconds INR (0.9-1.1) Sodium (136-145) mmol/L Potassium (3.5-5.1) mmol/L Chloride (98-107) mmol/L Carbon Dioxide (21-32) mmol/L Anion Gap (3-11) BUN (7-18) mg/dl Creatinine (0.6-1.2) mg/dl Est Cr Clr Drug Dosing ml/min Est GFR ( Amer) Est GFR (Non-Af Amer) BUN/Creatinine Ratio (10-20) Glucose (70-99) mg/dl Calcium (8.5-10.1) mg/dl Phosphorus 2.9 (2.5-4.9) mg/dl Magnesium 2.0 (1.8-2.4) mg/dl Total Bilirubin (0.2-1) mg/dl AST (15-37) U/L ALT (12-78) U/L Alkaline Phosphatase (45-117) U/L Troponin I < 0.015 (0-0.045) ng/ml Total Protein (6.4-8.2) gm/dl Albumin (3.4-5.0) gm/dl Globulin (2.5-4.0) gm/dl Albumin/Globulin Ratio (0.9-2) Lipase 199 (73-393) U/L TSH (0.300-4.500) uIu/ml Salicylates Acetaminophen Ethyl Alcohol mg/dL 204.4 H (0-3) mg/dl 12/08/19 12/08/19 Range/Units 15:59 15:59 WBC (4.8-10.8) K/uL RBC (4.2-5.4) M/uL Hgb (12.0-16.0) g/dL Hct (37-47) % MCV (80-100) fL MCH (25-34) pg MCHC (32-36) g/dL RDW Std Deviation (36.4-46.3) fL RDW Coeff of Artur (11.5-14.5) % Plt Count (130-400) K/uL MPV (7.4-10.4) fL Immature Gran % (Auto) % Neut % (Auto) % Lymph % (Auto) % [place] % (Auto) % Eos % (Auto) % Baso % (Auto) % Neut # (Auto) (1.4-6.5) K/uL Lymph # (Auto) (1.2-3.4) K/uL [place] # (Auto) (0.11-0.59) K/uL Eos # (Auto) (0-0.5) K/uL Baso # (Auto) (0-0.2) K/uL Immature Gran # (Auto) (0.00-0.02) K/uL PT 11.2 (9.0-12.0) Seconds INR 1.1 (0.9-1.1) Sodium (136-145) mmol/L Potassium (3.5-5.1) mmol/L Chloride (98-107) mmol/L Carbon Dioxide (21-32) mmol/L Anion Gap (3-11) BUN (7-18) mg/dl Creatinine (0.6-1.2) mg/dl Est Cr Clr Drug Dosing ml/min Est GFR ( Amer) Est GFR (Non-Af Amer) BUN/Creatinine Ratio (10-20) Glucose (70-99) mg/dl Calcium (8.5-10.1) mg/dl Phosphorus (2.5-4.9) mg/dl Magnesium (1.8-2.4) mg/dl Total Bilirubin (0.2-1) mg/dl AST (15-37) U/L ALT (12-78) U/L Alkaline Phosphatase (45-117) U/L Troponin I (0-0.045) ng/ml Total Protein (6.4-8.2) gm/dl Albumin (3.4-5.0) gm/dl Globulin (2.5-4.0) gm/dl Albumin/Globulin Ratio (0.9-2) Lipase (73-393) U/L TSH (0.300-4.500) uIu/ml Salicylates < 1.7 L Acetaminophen < 2 L Ethyl Alcohol mg/dL (0-3) mg/dl Administered Medications Discontinued Medications Gabapentin (Gabapentin 600 Mg Tab) 1,200 mg PO NOW ONE Stop: 12/08/19 16:22 Last Admin: 12/08/19 16:44 Dose: 1,200 mg Documented by: [id number] Sodium Chloride (Nss 1000ml) 1,000 mls @ 999 mls/hr IV .Q1H1M INDIO Stop: 12/08/19 14:30 Last Infusion: 12/08/19 15:54 Dose: 0 mls/hr Documented by: [id number] Admin: 12/08/19 14:41 Dose: 999 mls/hr Documented by: [id number] Lorazepam (Ativan) 1 mg in 2 mls @ 2 mls/min IV NOW STA Stop: 12/08/19 13:30 Last Admin: 12/08/19 14:41 Dose: 2 mls/min Documented by: [id number] Multivitamins 10 ml/ Thiamine HCl 100 mg/ Folic Acid 1 mg/Sodium Chloride 1,011.2 mls @ 1,011.2 mls/hr IV .Q1H ONE Stop: 12/08/19 15:58 Last Infusion: 12/08/19 16:36 Dose: 0 mls/hr Documented by: [id number] Admin: 12/08/19 15:28 Dose: 1,011.2 mls/hr Documented by: [id number] Discharge Plan Visit Data Chief Complaint: Anxiety Stated Complaint: SEVERE PSYCHIATRIC PROBLEMS ED Provider: Huber Zhou Discharge Problem: Alcohol intoxication, Anxiety, Insomnia, Decreased oral intake, Light-headed Patient Disposition: Admitted As Inpatient Discharge Instructions Interventions: ED Discharge Assessment Last Done: 12/08/19 17:28 Discharge Problem: Alcohol intoxication Qualifiers: Complication of substance-induced condition: with unspecified complication Qualified Code(s): F10.929 - Alcohol use, unspecified with intoxication, unspecified Insomnia Qualifiers: Insomnia type: unspecified Qualified Code(s): G47.00 - Insomnia, unspecified
[2019-12-08 16:12] LABS: Lipase 199 U/L (73-393); Troponin I < 0.015 ng/ml (0-0.045)
[2019-12-08] MEDS ORDERED: GABAPENTIN 600 MG TAB PO ONE (16:21)
[2019-12-08 16:24] LABS: INR 1.1 (0.9-1.1); Prothrombin Time 11.2 Seconds (9.0-12.0)
[2019-12-08 16:32] LABS: Acetaminophen < 2 ug/ml (10-30); Salicylate < 1.7 mg/dl (2.8-20)
--- NOTE | 2019-12-08 17:32 | History & Physical Report ---
Date of Service December 08, 2019 Assessment & Plan (1) Alcoholism: This is a 69 yr old who has significant PMH of Hypothyroidism, migraine, hx of alcoholism, depression with anxiety who presents to ED 2/2 to increased anxiety, sleeplessness and binge drinking. IN ED pt was hemodynamically stable. Lab work notable for H&H 14.6 and 43.2, platelets 77, K3.3, anion gap 21, total bili 1.7, AST 161, ALT 136, TSH 0.326, ethyl alcohol 204.4 In ED she received 1 g IV Ativan, banana bag and 1 L of IVF. Pt had been abstinent of alcohol for several years until yesterday. Has been having significant increase in anxiety and depression over past two weeks. Admit to PCU Gabapentin withdrawal protocol Ativan PRN daily IV thiamine and folic acid D5 NS 80cc/hr due to poor po intake x 2 L seizure precautions - pt has prior hx of withdrawal seizure (2) Hypokalemia: K 3.3 replete with 40 meq KCL repeat CMP in a.m. (3) Transaminitis: (4) Thrombocytopenia: plt 77, no s/sx of bleeding hx of cirrhosis - had followed [facility] in past pt also with transaminitis today T bili 1.7, AST 161, ALT 136 obtain RUQ U/S, MELD 10 recommend follow up with [facility] as outpt repeat CMP in a.m. (5) Depression with anxiety: on citalopram pt with increased depression and anxiety, very tearful appears situational with family and work contributing to relapse with alcohol discussed ability to consult psych and at this point declines would reassess daily (6) Hypothyroidism: Continue levothyroxine TSH low normal 0.326 Would recommend recheck TSH 2 weeks post hospitalization If continues to be low could be contributing to increased anxiety (7) DVT prophylaxis: SCD/TEDS, Plt 77 monitor and reassess daily need for chemical prophylaxis Disposition: admit to PCU due to concern for complicated withdrawal Follow up: PCP Dr. Maldonado upon discharge along with [facility] follow up, recommend continued AA meetings Pt was seen and examined in collaboration with Dr. Bradley, please see addendum History of Present Illness Chief Complaint: Anxiety, sleeplessness and binge alcohol drinking. Primary Care Provider: Shelbi Maldonado MD This is a 69 yr old who has significant PMH of Hypothyroidism, migraine, hx of alcoholism, depression with anxiety who presents to ED 2/2 to increased anxiety, sleeplessness and binge drinking. Pt had been Sober for the past 4 years and attended AA regularly. She had 1 drink a few months back when she was in [place] and just recently has been experiencing significant anxiety and depression for the past 2 weeks. She has not ate for the past 5 days, but has been pushing oral fluids with water and gatorade. 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 She is very overwhelmed and has not been sleeping for the past 2 weeks. She has restless nights with racing thoughts. Wh en she closes her eyes she feels like she visualizes unrealistic things and describes them as hallucinations. Yesterday and last evening she starting drinking again, Beni Lai. Initially she said only about 6 oz, but the elicited it was ~ 10 - 6oz drinks. "I don't really know because I just started drinking from the bottle." She feels very upset and angry at herself. When she became sober and was attending AA she felt very good about herself and this time she does not. She has spoken to a counselor in the past, but currently does not seen anyone from psychiatry. She does take citalopram 40mg prescribed by her PCP. She admits to hx of withdrawal seizure many years ago. She never required AEDS and she did see neurology for a short time. She denies any hx of tobacco or other elicit drug use. Prior hx of, "pre cirrhosis," but does not follow with GI. Currently she feels anxious and upset. She denies f/c/s, dizziness, lightheaded, chest pain, sob, cough, abdominal pain, emesis, diarrhea, melena, dysuria, increased urg/freq. She feels nausea due to not eating much. IN ED pt was hemodynamically stable. Lab work notable for H&H 14.6 and 43.2, platelets 77, K3.3, anion gap 21, total bili 1.7, AST 161, ALT 136, TSH 0.326, ethyl alcohol 204.4 In ED she received 1 g IV Ativan, banana bag and 1 L of IVF. Allergies Allergy/AdvReac Type Severity Reaction Status Date / Time Penicillins AdvReac Severe SEVERE Verified 12/08/19 13:26 DIARRHEA Home Medications Home Medications Medication Instructions Recorded Confirmed Type cholecalciferol (vitamin D3) 3,000 unit PO QAM 12/02/17 12/08/19 History [Vitamin D3] citalopram 40 mg PO QAM 12/02/17 12/08/19 History cyanocobalamin (vitamin B-12) 1,000 mcg PO QAM 12/02/17 12/08/19 History [Vitamin B-12] levothyroxine 25 mcg PO QAM 12/02/17 12/08/19 History sumatriptan succinate [Imitrex] 1 tab PO UD PRN 12/02/17 12/08/19 History aspirin [Ecotrin Low Strength] 81 mg PO DAILY 12/08/19 12/08/19 History Past Med/Surg History Medical History Anxiety Cirrhosis PER RECORDS; NO RECENT ISSUES Depression Hiatal hernia Hypothyroidism Migraine Obesity Seizure 2008 X 1 EPISODE; NO ISSUES SINCE Surgical History History of section History of colonoscopy History of total knee replacement LEFT TKA= 06/25/17= SAB X 1 ATTEMPT + PNB AT [facility] Family History Father Alzheimer disease Irregular heart rhythm Mother Age related osteoporosis Social History (Updated 12/08/19 @ 17:43 by Mary Anthony PA-C) Smoking Status: Former smoker Second Hand Exposure: No; Hx Alcohol Use: Yes Alcohol type: hard liquor Alcohol type Comment: Beni Gotti, drinking from the bottle Hx Substance Use: No Preferred Language: Amharic Communication Ability: Effective Brush Or Broom Cutter Required: No Beliefs That Will Affect Care: None Current Living Situation: Spouse Other Information That Helps Us Care for You: No Feels Safe at Home: Yes Safety Concerns: Feels Safe At This Time Assistive Devices: None Review of Systems Review of Systems: All systems reviewed & are unremarkable except as noted in HPI & below Physical Exam Physical Exam: Constitutional: WD/WN, anxious and tearful, F, vitals as above, NAD, sitting up in bed, pleasant, conversing easily Head: Normocephalic, Atraumatic Eyes: PERRL, conjunctivae normal, anicteric sclerae ENMT: external ear and nose normal, oropharynx normal Neck: trachea midline, no thyromegaly normal visual inspection Respiratory: normal respiratory effort, lungs clear to auscultation, no wheeze, rales, rhonchi. Normal insp/exp effort, no accessory muscle use Cardiovascular: RRR, no murmur, no edema Vessels: no JVD or carotid bruit Chest: normal inspection of chest Abdomen: normal bowel sounds, soft, nontender, no hepatosplenomegaly Musculoskeletal: no cyanosis or clubbing, extremities motor strength 5/5 Skin: no rashes, warm and dry normal turgor Neurologic: PERRL, EOMI, accommodation nl, no face palsy, no dysarthria CN's II-XI intact bilaterally and moves all extremities Psychiatric: A+Ox3, euthymic affect Lymphatic: no cervical or axillary lymphadenopathy : deferred Results & Data Results & Data ([facility]) Vital Signs (Past 12 Hours) Vital Signs Temp Pulse Pulse Resp BP BP Pulse Ox 12/08/19 16:00 91 H 20 110/63 96 12/08/19 15:29 95 12/08/19 14:40 87 16 118/80 93 12/08/19 11:50 36.5 C 96 H 20 130/81 96 Laboratory Results Discontinued Medications Gabapentin (Gabapentin 600 Mg Tab) 1,200 mg PO NOW ONE Stop: 12/08/19 16:22 Last Admin: 12/08/19 16:44 Dose: 1,200 mg Documented by: [id number] Sodium Chloride (Nss 1000ml) 1,000 mls @ 999 mls/hr IV .Q1H1M INDIO Stop: 12/08/19 14:30 Last Infusion: 12/08/19 15:54 Dose: 0 mls/hr Documented by: [id number] Admin: 12/08/19 14:41 Dose: 999 mls/hr Documented by: [id number] Lorazepam (Ativan) 1 mg in 2 mls @ 2 mls/min IV NOW STA Stop: 12/08/19 13:30 Last Admin: 12/08/19 14:41 Dose: 2 mls/min Documented by: [id number] Multivitamins 10 ml/ Thiamine HCl 100 mg/ Folic Acid 1 mg/Sodium Chloride 1,011.2 mls @ 1,011.2 mls/hr IV .Q1H ONE Stop: 12/08/19 15:58 Last Infusion: 12/08/19 16:36 Dose: 0 mls/hr Documented by: [id number] Admin: 12/08/19 15:28 Dose: 1,011.2 mls/hr Documented by: [id number]: IMPRESSION: No acute intracranial abnormality. RUQ U/S: FINDINGS: Hepatic echogenicity is increased. There is mild coarsening of hepatic echotexture. No hepatic lesions are identified. The gallbladder is normal. There are no gallstones. There is no gallbladder wall thickening. Pancreatic body is normal. Head and tail are obscured. There is no biliary ductal dilatation. The common bile duct measures 3 mm in caliber. There is no right hydronephrosis. IMPRESSION: 1. Fatty infiltration of the liver with suspected cirrhosis. 2. No gallstones or biliary ductal dilatation. 3. Partially obscured pancreas. Medications Administered Discontinued Medications Gabapentin (Gabapentin 600 Mg Tab) 1,200 mg PO NOW ONE Stop: 12/08/19 16:22 Last Admin: 12/08/19 16:44 Dose: 1,200 mg Documented by: [id number] Sodium Chloride (Nss 1000ml) 1,000 mls @ 999 mls/hr IV .Q1H1M INDIO Stop: 12/08/19 14:30 Last Infusion: 12/08/19 15:54 Dose: 0 mls/hr Documented by: [id number] Admin: 12/08/19 14:41 Dose: 999 mls/hr Documented by: [id number] Lorazepam (Ativan) 1 mg in 2 mls @ 2 mls/min IV NOW STA Stop: 12/08/19 13:30 Last Admin: 12/08/19 14:41 Dose: 2 mls/min Documented by: [id number] Multivitamins 10 ml/ Thiamine HCl 100 mg/ Folic Acid 1 mg/Sodium Chloride 1,011.2 mls @ 1,011.2 mls/hr IV .Q1H ONE Stop: 12/08/19 15:58 Last Infusion: 12/08/19 16:36 Dose: 0 mls/hr Documented by: [id number] Admin: 10/08/20 15:28 Dose: 1,011.2 mls/hr Documented by: [id number] ECG Rate (beats per minute): 75 Rhythm: sinus with SA Additional Comments: QTC 431ms Code Status & VTE Plan Code Status Full Code VTE Prophylaxis Plan VTE Prophylaxis will be ordered: Yes Supervising Physician Co-Signing Physician Notes Attending addendum: The patient was seen and examined in telemetry unit She has a history of alcoholism and after about 4 years of abstinence she has started drinking recently Admitted with anxiety, tremor and not been eating or drinking reasonably On examination Very anxious Hemodynamically stable with tachycardia and blood pressure on the higher side of 147/77 Chest-clear to auscultate bilaterally Heart-S1-S2, regular Abdomen-distended, soft, nontender, clinically no ascites Extremities-no edema 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
[2019-12-08] MEDS ORDERED: POTASSIUM CHLORIDE 20 MEQ TABCR PO STA (17:52)
--- NOTE | 2019-12-08 18:00 | Electrocardiogram Report ---
Test Reason : Blood Pressure : / mmHG Vent. Rate : 075 BPM Atrial Rate : 075 BPM P-R Int : 184 ms QRS Dur : 086 ms QT Int : 386 ms P-R-T Axes : 065 -16 080 degrees QTc Int : 431 ms Sinus rhythm with marked sinus arrhythmia Otherwise normal ECG When compared with ECG of 04-JUN-2017 11:57, Premature atrial complexes are no longer Present Confirmed by Shamar Pual ([id number]) on 12/08/2019 6:00:08 PM Referred By: REFERRED SELF Confirmed By:Pierre Paul
--- NOTE | 2019-12-08 18:05 | Ultrasound Report ---
ABDOMINAL ULTRASOUND, RIGHT UPPER QUADRANT HISTORY: elevated LFTs. COMPARISON: CT of the abdomen and pelvis and right upper quadrant ultrasound November 23, 2015. FINDINGS: Hepatic echogenicity is increased. There is mild coarsening of hepatic echotexture. No hepa tic lesions are identified. The gallbladder is normal. There are no gallstones. There is no gallbladd er wall thickening. Pancreatic body is normal. Head and tail are obscured. There is no biliary ductal dilatation. The common bile duct measures 3 mm in caliber. There is no right hydronephrosis. IMPRESSION: 1. Fatty infiltration of the liver with suspected cirrhosis. 2. No gallstones or biliary ductal dilatation. 3. Partially obscured pancreas. ACT 112: Negative or not required by law. Electronically signed by: iMke Crawford M.D. 12/08/2019 6:03 PM
[2019-12-08] MEDS ORDERED: GABAPENTIN 1200MG ALCOHOL WITHDRAWAL LOAD PO STA (18:13)
[2019-12-08] MEDS ORDERED: LORazepam 3 MG/6 ML VIAL IV PRN (18:13)
[2019-12-08] MEDS ORDERED: ACETAMINOPHEN 325 MG TAB PO PRN (18:13)
[2019-12-08] MEDS ORDERED: LORazepam 2 MG/4 ML VIAL IV PRN (18:13)
[2019-12-08] MEDS ORDERED: ATIVAN IV ALCOHOL WITHDRAWL IV PRN (18:13)
[2019-12-08] MEDS ORDERED: LORazepam 1 MG/2 ML VIAL IV PRN (18:13)
[2019-12-08] MEDS ORDERED: ONDANSETRON INJ 2 MG/ML 2 ML VIAL IV PRN (18:13)
[2019-12-08] MEDS ORDERED: POLYETHYLENE (MIRALAX) 17 GM PACK PO PRN (18:13)
[2019-12-08] MEDS ORDERED: ALUMINUM/MAGNESIUM SUSP 30 ML UDC PO PRN (18:13)
[2019-12-08] MEDS ORDERED: MAGNESIUM HYDROXIDE SUSP 30 ML UDC PO PRN (18:13)
[2019-12-08] MEDS: D5W AND NSS 1,000 ML IV SCH (19:31)
[2019-12-08] MEDS: GABAPENTIN 600 MG TAB PO SCH (22:17)
[2019-12-09] MEDS: GABAPENTIN 600 MG TAB PO SCH ×3 (05:31→20:25)
[2019-12-09] MEDS: LEVOTHYROXINE SODIUM 25 MCG TABLET PO SCH (05:31)
[2019-12-09 07:32] LABS: Hematocrit (blood only) 35.8 % (37-47); Hemoglobin 12.1 g/dL (12.0-16.0); Mean Corpuscular Hemoglobin 32.8 pg (25-34); Mean Corpuscular Hgb Conc 33.8 g/dL (32-36); RDW Coefficient of Variation 14.9 % (11.5-14.5); RDW Standard Deviation 53.1 fL (36.4-46.3); Red Blood Count 3.69 M/uL (4.2-5.4); White Blood Count 2.93 K/uL (4.8-10.8)
[2019-12-09 07:56] LABS: Platelet Count 40 K/uL (130-400)
[2019-12-09 07:57] LABS: Albumin Level 3.3 gm/dl (3.4-5.0); BUN Creatinine Ratio 16.5 (10-20); Calcium 8.6 mg/dl (8.5-10.1); Creatinine Clr Calc Pharmacy 59.4 ml/min; Est GFR (African American) 75.6; Est GFR (Non-African American) 65.2; Potassium 3.4 mmol/L (3.5-5.1)
[2019-12-09 08:04] LABS: Albumin Globulin Ratio 1.1 (0.9-2); Total Protein 6.3 gm/dl (6.4-8.2)
--- NOTE | 2019-12-09 08:04 | Hospitalist Progress Note ---
Date of Service December 09, 2019 Assessment & Plan (1) Alcoholism: This is a 69 yr old who has significant PMH of Hypothyroidism, migraine, hx of alcoholism, depression with anxiety who presents to ED 2/2 to increased anxiety, sleeplessness and binge drinking. IN ED pt was hemodynamically stable. Lab work notable for H&H 14.6 and 43.2, platelets 77, K3.3, anion gap 21, total bili 1.7, AST 161, ALT 136, TSH 0.326, ethyl alcohol 204.4 In ED she received 1 g IV Ativan, banana bag and 1 L of IVF. Pt had been abstinent of alcohol for several years until yesterday. Has been having significant increase in anxiety and depression over past two weeks. Admit to PCU Gabapentin withdrawal protocol Ativan PRN daily IV thiamine and folic acid D5 NS 80cc/hr due to poor po intake x 2 L seizure precautions - pt has prior hx of withdrawal seizure (2) Hypokalemia: K 3.3 on admission replete and monitor Hypophosphatemia -replete and monitor (3) Transaminitis: (4) Thrombocytopenia: plt 77 -> 40, no s/sx of bleeding hx of cirrhosis - had followed [facility] in past pt also with transaminitis T bili 1.7, AST 161, ALT 136 obtain RUQ U/S, MELD 10 recommend follow up with [facility] as outpt monitor CMP (5) Depression with anxiety: on citalopram pt with increased depression and anxiety, very tearful appears situational with family and work contributing to relapse with alcohol Psychiatry consulted, recommendations sent to PCP Patient wishes to follow-up with AA meetings as outpatient and therapy would reassess daily (6) Hypothyroidism: Continue levothyroxine TSH low normal 0.326 Would recommend recheck TSH 2 weeks post hospitalization If continues to be low could be contributing to increased anxiety (7) DVT prophylaxis: SCD/TEDS, Plt 77 -> 40 monitor and reassess daily need for chemical prophylaxis Disposition: admit to PCU due to concern for complicated withdrawal Follow up: PCP Dr. Maldonado upon discharge along with [facility] follow up, recommend continued AA meetings Admission and Anticipated Discharge Date Admission Date: December 08, 2019 Subjective Patient sitting up in bed, in no acute distress however appears anxious, and tremulous. Asks for psychiatry consultation which was arranged. Currently denies any fevers, chills, chest pain, shortness of breath, abdominal pain, nausea vomiting. Review of Systems Review of Systems: All systems reviewed & are unremarkable except as noted in HPI & below Constitutional: no fever and no chills Respiratory: no cough and no dyspnea Cardiovascular: no chest pain and no palpitations Gastrointestinal: no abdominal pain, no nausea and no vomiting Neurologic: + tremor(s) Psychiatric: + anxiety Physical Exam Physical Exam: Constitutional: WD/WN, anxious and little tearful, F, vitals as above, NAD, sitting up in bed, pleasant, conversing easily Head: Normocephalic, Atraumatic Eyes: PERRL, EOMI, conjunctivae normal, anicteric sclerae ENMT: external ear and nose normal, oropharynx normal Neck: trachea midline, no thyromegaly normal visual inspection Respiratory: normal respiratory effort, lungs clear to auscultation, no wheeze, rales, rhonchi. Normal insp/exp effort, no accessory muscle use Cardiovascular: RRR, no murmur, no edema Vessels: no JVD or carotid bruit Chest: normal inspection of chest Abdomen: normal bowel sounds, soft, nontender Musculoskeletal: no cyanosis or clubbing, extremities motor strength 5/5 Skin: no rashes, warm and dry normal turgor Neurologic: PERRL, EOMI,no face palsy, no dysarthria, +tremor, CN's II-XI intact bilaterally and moves all extremities Psychiatric: A+Ox3, euthymic affect Results & Data Results & Data ([facility]) Vital Signs (Past 12 Hours) Vital Signs Temp Pulse Pulse Resp BP Pulse Ox 12/09/19 07:52 36.9 C 72 19 123/70 96 12/09/19 02:36 36.6 C 87 17 119/65 97 12/09/19 00:14 36.6 C 107 H 19 135/75 98 12/09/19 00:00 92 H Laboratory Results 12/09/19 12/09/19 12/08/19 Range/Units 07:09 07:09 15:59 WBC 2.93 L (4.8-10.8) K/uL RBC 3.69 L (4.2-5.4) M/uL Hgb 12.1 (12.0-16.0) g/dL Hct 35.8 L (37-47) % MCV 97.0 (80-100) fL MCH 32.8 (25-34) pg MCHC 33.8 (32-36) g/dL RDW Std Deviation 53.1 H (36.4-46.3) fL RDW Coeff of Artur 14.9 H (11.5-14.5) % Plt Count 40 L (130-400) K/uL MPV 10.0 (7.4-10.4) fL Immature Gran % (Auto) % Neut % (Auto) % Lymph % (Auto) % [place] % (Auto) % Eos % (Auto) % Baso % (Auto) % Neut # (Auto) (1.4-6.5) K/uL Lymph # (Auto) (1.2-3.4) K/uL [place] # (Auto) (0.11-0.59) K/uL Eos # (Auto) (0-0.5) K/uL Baso # (Auto) (0-0.2) K/uL Immature Gran # (Auto) (0.00-0.02) K/uL PT 11.2 (9.0-12.0) Seconds INR 1.1 (0.9-1.1) Sodium 138 (136-145) mmol/L Potassium 3.4 L (3.5-5.1) mmol/L Chloride 103 (98-107) mmol/L Carbon Dioxide 26 (21-32) mmol/L Anion Gap 9.0 (3-11) BUN 15 (7-18) mg/dl Creatinine 0.89 (0.6-1.2) mg/dl Est Cr Clr Drug Dosing 59.4 ml/min Est GFR ( Amer) 75.6 Est GFR (Non-Af Amer) 65.2 BUN/Creatinine Ratio 16.5 (10-20) Glucose 98 (70-99) mg/dl Calcium 8.6 (8.5-10.1) mg/dl Phosphorus 1.8 L D (2.5-4.9) mg/dl Magnesium 2.0 (1.8-2.4) mg/dl Total Bilirubin 2.0 H (0.2-1) mg/dl AST 110 H (15-37) U/L ALT 104 H (12-78) U/L Alkaline Phosphatase 67 (45-117) U/L Troponin I (0-0.045) ng/ml Total Protein 6.3 L D (6.4-8.2) gm/dl Albumin 3.3 L (3.4-5.0) gm/dl Globulin 3.0 (2.5-4.0) gm/dl Albumin/Globulin Ratio 1.1 (0.9-2) Lipase (73-393) U/L TSH (0.300-4.500) uIu/ml Salicylates Acetaminophen Ethyl Alcohol mg/dL (0-3) mg/dl 12/08/19 12/08/19 12/08/19 Range/Units 15:59 14:14 14:14 WBC (4.8-10.8) K/uL RBC (4.2-5.4) M/uL Hgb (12.0-16.0) g/dL Hct (37-47) % MCV (80-100) fL MCH (25-34) pg MCHC (32-36) g/dL RDW Std Deviation (36.4-46.3) fL RDW Coeff of Artur (11.5-14.5) % Plt Count (130-400) K/uL MPV (7.4-10.4) fL Immature Gran % (Auto) % Neut % (Auto) % Lymph % (Auto) % [place] % (Auto) % Eos % (Auto) % Baso % (Auto) % Neut # (Auto) (1.4-6.5) K/uL Lymph # (Auto) (1.2-3.4) K/uL [place] # (Auto) (0.11-0.59) K/uL Eos # (Auto) (0-0.5) K/uL Baso # (Auto) (0-0.2) K/uL Immature Gran # (Auto) (0.00-0.02) K/uL PT (9.0-12.0) Seconds INR (0.9-1.1) Sodium (136-145) mmol/L Potassium (3.5-5.1) mmol/L Chloride (98-107) mmol/L Carbon Dioxide (21-32) mmol/L Anion Gap (3-11) BUN (7-18) mg/dl Creatinine (0.6-1.2) mg/dl Est Cr Clr Drug Dosing ml/min Est GFR ( Amer) Est GFR (Non-Af Amer) BUN/Creatinine Ratio (-20) Glucose (70-99) mg/dl Calcium (8.5-10.1) mg/dl Phosphorus 2.9 (2.5-4.9) mg/dl Magnesium 2.0 (1.8-2.4) mg/dl Total Bilirubin (0.2-1) mg/dl AST (15-37) U/L ALT (12-78) U/L Alkaline Phosphatase (45-117) U/L Troponin I < 0.015 (0-0.045) ng/ml Total Protein (6.4-8.2) gm/dl Albumin (3.4-5.0) gm/dl Globulin (2.5-4.0) gm/dl Albumin/Globulin Ratio (0.9-2) Lipase 199 (73-393) U/L TSH (0.300-4.500) uIu/ml Salicylates < 1.7 L Acetaminophen < 2 L Ethyl Alcohol mg/dL (0-3) mg/dl 12/08/19 12/08/19 12/08/19 Range/Units 14:14 14:14 14:14 WBC (4.8-10.8) K/uL RBC (4.2-5.4) M/uL Hgb (12.0-16.0) g/dL Hct (37-47) % MCV (80-100) fL MCH (25-34) pg MCHC (32-36) g/dL RDW Std Deviation (36.4-46.3) fL RDW Coeff of Artur (11.5-14.5) % Plt Count (130-400) K/uL MPV (7.4-10.4) fL Immature Gran % (Auto) % Neut % (Auto) % Lymph % (Auto) % [place] % (Auto) % Eos % (Auto) % Baso % (Auto) % Neut # (Auto) (1.4-6.5) K/uL Lymph # (Auto) (1.2-3.4) K/uL [place] # (Auto) (0.11-0.59) K/uL Eos # (Auto) (0-0.5) K/uL Baso # (Auto) (0-0.2) K/uL Immature Gran # (Auto) (0.00-0.02) K/uL PT (9.0-12.0) Seconds INR (0.9-1.1) Sodium 137 (136-145) mmol/L Potassium 3.3 L (3.5-5.1) mmol/L Chloride 97 L (98-107) mmol/L Carbon Dioxide 19 L (21-32) mmol/L Anion Gap 21.0 H (3-11) BUN 16 (7-18) mg/dl Creatinine 0.90 (0.6-1.2) mg/dl Est Cr Clr Drug Dosing 58.3 ml/min Est GFR ( Amer) 74.6 Est GFR (Non-Af Amer) 64.3 BUN/Creatinine Ratio 17.4 (10-20) Glucose 80 (70-99) mg/dl Calcium 8.8 (8.5-10.1) mg/dl Phosphorus (2.5-4.9) mg/dl Magnesium (1.8-2.4) mg/dl Total Bilirubin 1.7 H (0.2-1) mg/dl AST 161 H (15-37) U/L ALT 136 H (12-78) U/L Alkaline Phosphatase 81 (45-117) U/L Troponin I (0-0.045) ng/ml Total Protein 8.0 (6.4-8.2) gm/dl Albumin 4.3 (3.4-5.0) gm/dl Globulin 3.7 (2.5-4.0) gm/dl Albumin/Globulin Ratio 1.2 (0.9-2) Lipase (73-393) U/L TSH 0.326 (0.300-4.500) uIu/ml Salicylates Cancelled Acetaminophen Cancelled Ethyl Alcohol mg/dL 204.4 H (0-3) mg/dl 12/08/19 Range/Units 14:14 WBC 4.06 L (4.8-10.8) K/uL RBC 4.47 (4.2-5.4) M/uL Hgb 14.6 (12.0-16.0) g/dL Hct 43.2 (37-47) % MCV 96.6 (80-100) fL MCH 32.7 (25-34) pg MCHC 33.8 (32-36) g/dL RDW Std Deviation 53.0 H (36.4-46.3) fL RDW Coeff of Artur 14.9 H (11.5-14.5) % Plt Count 77 L (130-400) K/uL MPV 9.7 (7.4-10.4) fL Immature Gran % (Auto) 0.0 % Neut % (Auto) 66.6 % Lymph % (Auto) 21.9 % [place] % (Auto) 10.6 % Eos % (Auto) 0.7 % Baso % (Auto) 0.2 % Neut # (Auto) 2.70 (1.4-6.5) K/uL Lymph # (Auto) 0.89 L (1.2-3.4) K/uL [place] # (Auto) 0.43 (0.11-0.59) K/uL Eos # (Auto) 0.03 (0-0.5) K/uL Baso # (Auto) 0.01 (0-0.2) K/uL Immature Gran # (Auto) 0.00 (0.00-0.02) K/uL PT (9.0-12.0) Seconds INR (0.9-1.1) Sodium (136-145) mmol/L Potassium (3.5-5.1) mmol/L Chloride (98-107) mmol/L Carbon Dioxide (21-32) mmol/L Anion Gap (3-11) BUN (7-18) mg/dl Creatinine (0.6-1.2) mg/dl Est Cr Clr Drug Dosing ml/min Est GFR ( Amer) Est GFR (Non-Af Amer) BUN/Creatinine Ratio (10-20) Glucose (70-99) mg/dl Calcium (8.5-10.1) mg/dl Phosphorus (2.5-4.9) mg/dl Magnesium (1.8-2.4) mg/dl Total Bilirubin (0.2-1) mg/dl AST (15-37) U/L ALT (12-78) U/L Alkaline Phosphatase (45-117) U/L Troponin I (0-0.045) ng/ml Total Protein (6.4-8.2) gm/dl Albumin (3.4-5.0) gm/dl Globulin (2.5-4.0) gm/dl Albumin/Globulin Ratio (0.9-2) Lipase (73-393) U/L TSH (0.300-4.500) uIu/ml Salicylates Acetaminophen Ethyl Alcohol mg/dL (0-3) mg/dl Medications Administered Current Inpatient Medications Acetaminophen (Acetaminophen 325 Mg Tab) 650 mg PO Q4H PRN PRN Reason: Pain or Fever Stop: 01/07/20 18:12 Last Admin: 12/09/19 00:22 Dose: 650 mg Documented by: Al Hydrox/Mg Hydrox/Simethicone (Aluminum/Magnesium Susp 30 Ml Udc) 15 ml PO Q4H PRN PRN Reason: Dyspepsia Stop: 01/07/20 18:12 Aspirin (Aspirin 81 Mg Ectab) 81 mg PO DAILY [facility] Stop: 01/08/20 08:59 Last Admin: 12/09/19 08:25 Dose: 81 mg Documented by: Citalopram Hydrobromide (Citalopram 40 Mg Tab) 40 mg PO QAM [facility] Stop: 01/08/20 08:59 Last Admin: 12/09/19 08:25 Dose: 40 mg Documented by: Cyanocobalamin (Cyanocobalamin 500 Mcg Tablet (Vitamin B-12)) 1,000 mcg PO QAM [facility] Stop: 01/08/20 08:59 Last Admin: 12/09/19 08:25 Dose: 1,000 mcg Documented by: Gabapentin (Gabapentin 600 Mg Tab) 600 mg PO Q8H [facility] Stop: 12/10/19 04:01 Last Admin: 12/09/19 11:34 Dose: 600 mg Documented by: Gabapentin (Gabapentin 600 Mg Tab) 600 mg PO Q12H [facility] Stop: 12/11/19 04:01 Gabapentin (Gabapentin 600 Mg Tab) 600 mg PO Q24H [facility] Stop: 12/12/19 04:01 Lorazepam (Ativan) 1 mg in 2 mls @ 2 mls/min IV UD PRN; Protocol PRN Reason: EtOH Withdrawl AWSS Score 6,7 Stop: 01/07/20 18:12 Lorazepam (Ativan) 2 mg in 4 mls @ 4 mls/min IV UD PRN; Protocol PRN Reason: EtOH Withdrawl AWSS Score 8,9 Stop: 01/07/20 18:12 Lorazepam (Ativan) 3 mg in 6 mls @ 4 mls/min IV ONCE PRN; Protocol PRN Reason: EtOH Withdrawl AWSS Score >=10 Stop: 01/07/20 18:12 Folic Acid 1 mg/ Syringe 10 mls [facility] Stop: 01/08/20 08:59 Last Admin: 12/09/19 10:06 Dose: 5 mls/min Documented by: Thiamine HCl 100 mg/ Syringe 10 mls @ 2 mls/[facility] [place] Stop: 01/08/20 08:59 Last Admin: 12/09/19 09:30 Dose: 2 mls/min Documented by: Dextrose/Sodium Chloride (D5w And Nss) 1,000 mls @ 80 mls/hr IV .[id number] [facility] Stop: 12/09/19 19:44 Last Admin: 12/09/19 08:25 Dose: 80 mls/hr Documented by: Potassium Phosphate 15 mmol/ (Sodium Chloride) 255 mls @ 88 mls/hr IV NOW [facility] Stop: 12/09/19 14:27 Levothyroxine Sodium (Levothyroxine Sodium 25 Mcg Tablet) [facility] Stop: 01/08/20 06:29 Last Admin: 12/09/19 05:31 Dose: 25 mcg Documented by: Magnesium Hydroxide (Magnesium Hydroxide Susp 30 Ml Udc) 30 ml PO Q12H PRN PRN Reason: Constipation Stop: 01/07/20 18:12 Ondansetron HCl (Ondansetron Inj 2 Mg/Ml 2 Ml Vial) 4 mg IV Q6H PRN PRN Reason: Nausea Stop: 01/07/20 18:12 Polyethylene Glycol (Polyethylene (Miralax) 17 Gm Pack) 17 gm PO DAILY PRN PRN Reason: Constipation Stop: 01/07/20 18:12 Vitamin D (Cholecalciferol 1,000 Units 25 Mcg Tab) 3,000 units PO [facility] Stop: 01/08/20 08:59 Last Admin: 12/09/19 08:24 Dose: 3,000 units Documented by:
[2019-12-09] MEDS: CHOLECALCIFEROL 1,000 UNITS 25 MCG TAB PO SCH (08:24)
[2019-12-09] MEDS: CYANOCOBALAMIN 500 MCG TABLET (VITAMIN B-12) PO SCH (08:25)
[2019-12-09] MEDS: ASPIRIN 81 MG ECTAB PO SCH (08:25)
[2019-12-09] MEDS: CITALOPRAM 40 MG TAB PO SCH (08:25)
[2019-12-09] MEDS: D5W AND NSS 1,000 ML IV SCH (08:25)
[2019-12-09 08:48] LABS: Phosphorus 1.8 mg/dl (2.5-4.9)
[2019-12-09] MEDS: THIAMINE HCL 100 MG in SYRINGE 9 ML IV SCH (09:30)
[2019-12-09] MEDS: FOLIC ACID 1 MG in SYRINGE 9.8 ML IV SCH (10:06)
[2019-12-09] MEDS ORDERED: POTASSIUM PHOS 3 MMOL/1 ML INFUSION IV STA (11:32)
[2019-12-09] MEDS ORDERED: POTASSIUM CHLORIDE 20 MEQ TABCR PO STA (11:33)
[2019-12-09] MEDS ORDERED: POTASSIUM PHOSPHATE 15 MMOL in SODIUM CHLORIDE 0.9% 250 ML IV STA (11:34)
--- NOTE | 2019-12-09 12:20 | Psychiatric Consultation ---
Date of Consultation December 09, 2019 Impression / Recommendations Impression Dr. Yusuf Guo was directly involved in review and discussion of the patient's case and participated in medical decision making regarding treatment recommendations. RECOMMENDATIONS: 12/08 - Psychiatric consultation requested by hospitalist service to evaluate patient for anxiety, as well as history of alcohol abuse with recent episodes of binge drinking. - Pt admits increased anxiety and depression, which she perceives to be related to various situational stressors. Pt is able to verbalize an appropriate safety plan and is already beginning to reach out to supports to ass ist her with this. Pt is agreeable with an individual therapist on an outpatient basis and was provided with resources by case management. Pt was encouraged to reach out to our service or case management is she required any assistance with setting up appointments. - Pt declined any medication adjustments at this time, stating she felt coping strategies and returning to her usual schedule was remedy her increased anxiety and mood changes. This provider did express concern about medication adjustments in the setting of alcohol intoxication and concern for withdrawal. Will fax this consultation to patient's PCP, who is currently managing the patient's prescriptions - Should patient request medication adjustments to target mood and/or anxiety, the following could be considered: - Initiation of buspirone to target anxiety, with continued dosing of citalopram 40mg - Cross-titration to an alternative antidepressant medication such as escitalopram or sertraline - Would advise against further titration of citalopram due to patient's advancing age and elevated risk of cardiac-related side effects associated with dosing of citalopram beyond 40mg - Appreciate opportunity to participate in the care of this patient. Please reach out to our service with any additional questions or updates. Pt was encouraged to reach out to our service with any additional needs or if she shoul d desire referrals for outpatient treatment. Psych History Identifying Data 69-year-old female admitted medically on 12/08/2019 after presenting to the ED with anxiety and reported binge drinking. Pt was admitted medically due to concern for possible withdrawal. Psychiatric consultation was requested by hospitalist service for anxiety and alcohol abuse. Chief Complaint "Um, a couple weeks ag especially...I don't know, something came over me." History of Present Illness Natalia Jiménez is a 69-year-old female admitted medically on 12/08/2019 after presenting to the ED with reported anxiety, sleeplessness, and binge drinking. Pt has a reported history of alcohol abuse, but reports she had been sober for several years. Pt shared with admitting provider that she had consumed ~10 - 6oz drinks of Beni Lai's, but admits to inability to accurately report amount consumed as "I don't really know because I just started drinking from the bottle." Psychiatric consultation was offered on admission for discussion about anxiety, but patient initially declined. Pt is now agreeable, and consultation was requested by hospitalist service to evaluate for anxiety and alcohol abuse. Pt was cooperative with psychiatric assessment. She did appear anxious and was fidgeting for most of our conversation. She did appear tearful at times. Pt stated "Um, a couple weeks ag especially...I don't know, something came over me ." Pt states that she has been sober for 4 years, and admits to a history of alcohol abuse. She states she attends AA meetings at least once a week, but often as many as 3-5 times depending on her schedule. Pt states that she has not been pleased with the switch to Zoom meetings during the COVID-19 pandemic, but has been consistent with her schedule. Pt admits that there have been a few situational stressors recently and, "I let myself slide into depression. I wasn't doing thigs that I know are helpful for me." Pt states specific stressors include her 's alcohol use, feeling less connected to her , declining health of her 93y/o mother, and less ability to meet up with friends. 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 Pt admits the concern leading to her ED presentation was increased anxiety and insomnia, which have improved somewhat since coming to the hospital. Pt reports she has been on citalopram for the past 6 years, continuing the current dose for the past 3-4 years. Pt does state "I don't think I need medications adjusted right now, I know what I need to do." Pt states she has already informed her sponsor and several friends in AA of her relapse and has already be planning a strategy to return to meetings, exercising, and meeting up with her supports. Pt was provided with D&A cou nseling pamphlets by case management, and reports her plan is to call some of the offices today. Assistance with the referral process was offered and patient declined at this time. Pt did not feel referral for an outpatient psychiatrist is necessary at this time, but did agree to allow our consult documentation to be faxed to her PCP for coordination of care. Past Psychiatric History Current Psychiatric Diagnosis: Depression and anxiety Outpatient Services: Medications prescribed by patient's PCP Previous Psych Admissions: Denied History of Previous Suicide Attempt: No Past Medication Trials: Pt states she has only ever been prescribed citalopram to target mood and anxiety. She admits to having taken trazodone for sleep, but this led to "crazy nightmare." Allergies Allergy/AdvReac Type Severity Reaction Status Date / Time Penicillins AdvReac Severe SEVERE Verified 12/08/19 13:26 DIARRHEA Home Medications Home Medications Medication Instructions Recorded Confirmed Type cholecalciferol (vitamin D3) 3,000 unit PO QAM 12/02/17 12/08/19 History [Vitamin D3] citalopram 40 mg PO QAM 12/02/17 12/08/19 History cyanocobalamin (vitamin B-12) 1,000 mcg PO QAM 12/02/17 12/08/19 History [Vitamin B-12] levothyroxine 25 mcg PO QAM 12/02/17 12/08/19 History sumatriptan succinate [Imitrex] 1 tab PO UD PRN 12/02/17 12/08/19 History aspirin [Ecotrin Low Strength] 81 mg PO DAILY 12/08/19 12/08/19 History Family History Pt reports mother has developed depression as she has aged. Substance Abuse History Pt admits to history of alcohol abuse. Previously sober for 4 years, relapsing the day prior to admission. Unable to quantify amount consumed as "I don't really know because I just started drinking from the bottle." Pt denies use of other illicit substances. Pt is a former smoker. 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 teaches) Marital Status: (to of 20+ years) Number Of Children: had only one son, who at the age of 17y/o Patient History Medical History Anxiety Cirrhosis PER RECORDS; NO RECENT ISSUES Depression Hiatal hernia Hypothyroidism Migraine Obesity Seizure 2008 X 1 EPISODE; NO ISSUES SINCE Surgical History History of section History of colonoscopy History of total knee replacement LEFT TKA= 06/25/17= SAB X 1 ATTEMPT + P[facility] AT [facility] Family History Father Alzheimer disease Irregular heart rhythm Mother Age related osteoporosis Social History Smoking Status: Former smoker Second Hand Exposure: No; Hx Alcohol Use: Yes Alcohol type: hard liquor Alcohol type Comment: Beni Gotti, drinking from the bottle Hx Substance Use: No Preferred Language: Albanian Communication Ability: Effective Driving Teacher Required: No Beliefs That Will Affect Care: None Current Living Situation: Spouse Other Information That Helps Us Care for You: No Feels Safe at Home: Yes Safety Concerns: Feels Safe At This Time Assistive Devices: None Physical Exam Psychiatric: Orientation: alert, oriented x 3 and cooperative Apperance: appropriately dressed, appropriately groomed and appeared stated age Obese- appearing female, laying in bed - appearing somewhat restless but in no acute distress. Pt is appropriately dressed in clothing from home. Thomas hair is short and appears clean and decently styled. Level of hygiene and grooming are adequate. Eye Contact: good eye contact Motor Behavior: + psychomotor agitation (appearing somewhat restless, fidgeting while laying in bed) Speech: normal rate/rhythm/volume of speech Affect: + anxious affect, + tearful affect and mood congruent with affect Mood: + depressed mood and + anxious mood Admits mood and anxiety have worsened over the last few weeks Thought Process: goal directed thought process, clear/coherent thought process and thought association intact Thought Content: reality based without delusions; no hopelessness and no worthlessness Suicidal Thoughts: denies suicidal thoughts, denies suicidal plan and denies suicidal intent Homicidal Thoughts: denies homicidal thoughts Hallucinations: no auditory hallucinations and no visual hallucinations Cognition: attention grossly intact and language grossly intact Estimated Intelligence: consistent with education level Insight: good insight Judgement: good judgement Vital Signs (Past 24 Hours): Last Vital Signs Temp 36.6 C 12/09/19 12:04 Pulse 80 12/09/19 12:04 Resp 19 12/09/19 12:04 BP 124/79 12/09/19 12:04 Pulse Ox 95 12/09/19 12:04 Review of Systems Constitutional: denied Cardiovascular: denied Respiratory: denied Gastrointestinal: denied Neurological: denied Psychiatric: denies symptoms other than stated above Total of at least 10 systems reviewed, pertinent positives as above and in HPI. Results & Data (PSY) Medications Administered Acetaminophen (Acetaminophen 325 Mg Tab) 650 mg PO Q4H PRN PRN Reason: Pain or Fever Stop: 01/07/20 18:12 Last Admin: 12/09/19 00:22 Dose: 650 mg Documented by: [id number] Aspirin (Aspirin 81 Mg Ectab) 81 mg PO DAILY [facility] Stop: 01/08/20 08:59 Last Admin: 12/09/19 08:25 Dose: 81 mg Documented by: [id number] Citalopram Hydrobromide (Citalopram 40 Mg Tab) 40 mg PO [facility] Stop: 01/08/20 08:59 Last Admin: 12/09/19 08:25 Dose: 40 mg Documented by: [id number] Cyanocobalamin (Cyanocobalamin 500 Mcg Tablet (Vitamin B-12)) [facility] [place]: 01/08/20 08:59 Last Admin: 12/09/19 08:25 Dose: 1,000 mcg Documented by: [id number] Gabapentin (Gabapentin 600 Mg Tab) 600 mg PO Q8H [facility] Stop: 12/10/19 04:01 Last Admin: 12/09/19 11:34 Dose: 600 mg Documented by: [id number] Folic Acid 1 mg/ Syringe 10 mls @ 5 mls/min IV QAM [facility] Stop: 01/08/20 08:59 Last Admin: 12/09/19 10:06 Dose: 5 mls/min Documented by: [id number] Thiamine HCl 100 mg/ Syringe 10 mls @ 2 mls/min IV QAM [facility] Stop: 01/08/20 08:59 Last Admin: 12/09/19 09:30 Dose: 2 mls/min Documented by: [id number] Dextrose/Sodium Chloride (D5w And Nss) 1,000 mls @ 80 mls/hr IV .[id number] [facility] Stop: 12/09/19 19:44 Last Admin: 12/09/19 08:25 Dose: 80 mls/hr Documented by: [id number] Infusion: 12/09/19 08:01 Dose: 80 mls/hr Documented by: [id number] Admin: 12/08/19 19:31 Dose: 80 mls/hr Documented by: [id number] Levothyroxine Sodium (Levothyroxine Sodium 25 Mcg Tablet) 25 mcg PO DAILYBB [facility] Stop: 01/08/20 06:29 Last Admin: 12/09/19 05:31 Dose: 25 mcg Documented by: [id number] Vitamin D (Cholecalciferol 1,000 Units 25 Mcg Tab) 3,000 [facility] [place] Stop: 01/08/20 08:59 Last Admin: 12/09/19 08:24 Dose: 3,000 units Documented by: [id number] Coding Level of Care Code 54738 [facility] Intl Hosp Care Lvl 2
[2019-12-09 14:45] LABS: Appearance Urine Clear (Clear); Bacteria Urine Automated Negative (Negative); Blood Urine Negative (Negative); Color Urine Orange; Epithelial Cell Urine Auto >30 /lpf (0-5); Glucose Urine UA Negative (Negative); Ketones Urine 2+ (Negative); Leukocyte Esterase Urine Trace (Negative); Nitrite Urine Negative (Negative); Protein Urine 2+ (Negative); Specific Gravity Urine 1.025 (1.000-1.030); Urobilinogen Urine Positive (Negative)
[2019-12-09 15:00] LABS: Bilirubin Urine 2+ (Negative)
[2019-12-09 15:02] LABS: Ictotest Urine Positive (Negative)
[2019-12-09 15:03] LABS: RBC Urine Automated 0-4 /hpf (0-4)
[2019-12-09 15:11] LABS: Amphetamines+Metham, Urine Neg (Neg); Barbiturates, Urine Neg (Neg); Benzodiazepine, Urine Neg (Neg); Cocaine, Urine Neg (Neg); MDMA (Ecstacy), Urine Neg (Neg); Methadone, Urine Neg (Neg); Opiate, Urine Neg (Neg); Phencyclidine, Urine Neg (Neg)
[2019-12-10] MEDS ORDERED: LORazepam 0.5 MG TAB PO PRN (01:38)
[2019-12-10] MEDS: GABAPENTIN 600 MG TAB PO SCH ×2 (05:30→17:12)
[2019-12-10] MEDS: LEVOTHYROXINE SODIUM 25 MCG TABLET PO SCH (05:31)
[2019-12-10 06:17] LABS: Hematocrit (blood only) 37.1 % (37-47); Hemoglobin 12.3 g/dL (12.0-16.0); Mean Corpuscular Hemoglobin 32.4 pg (25-34); Mean Corpuscular Hgb Conc 33.2 g/dL (32-36); Mean Corpuscular Volume 97.6 fL (80-100); RDW Coefficient of Variation 14.6 % (11.5-14.5); RDW Standard Deviation 52.2 fL (36.4-46.3); White Blood Count 2.43 K/uL (4.8-10.8)
[2019-12-10 06:46] LABS: Mean Platelet Volume 9.5 fL (7.4-10.4); Platelet Count 38 K/uL (130-400)
[2019-12-10 06:53] LABS: Albumin Globulin Ratio 1.2 (0.9-2); Albumin Level 3.5 gm/dl (3.4-5.0); Bilirubin,Total 1.7 mg/dl (0.2-1); Calcium 8.6 mg/dl (8.5-10.1); Creatinine Clr Calc Pharmacy 72.2 ml/min; Est GFR (African American) 92.9; Est GFR (Non-African American) 80.2; Globulin 2.9 gm/dl (2.5-4.0); Magnesium 1.7 mg/dl (1.8-2.4); Phosphorus 1.7 mg/dl (2.5-4.9); Potassium 3.4 mmol/L (3.5-5.1); Total Protein 6.4 gm/dl (6.4-8.2)
[2019-12-10] MEDS: CITALOPRAM 40 MG TAB PO SCH (07:53)
[2019-12-10] MEDS: ASPIRIN 81 MG ECTAB PO SCH (07:53)
[2019-12-10] MEDS: CHOLECALCIFEROL 1,000 UNITS 25 MCG TAB PO SCH (07:54)
[2019-12-10] MEDS: CYANOCOBALAMIN 500 MCG TABLET (VITAMIN B-12) PO SCH (07:55)
[2019-12-10] MEDS: THIAMINE HCL 100 MG in SYRINGE 9 ML IV SCH (07:56)
[2019-12-10] MEDS: FOLIC ACID 1 MG in SYRINGE 9.8 ML IV SCH (07:56)
[2019-12-10] MEDS ORDERED: POTASSIUM PHOS 3 MMOL/1 ML INFUSION IV STA (08:18)
--- NOTE | 2019-12-10 08:25 | Hospitalist Progress Note ---
Date of Service December 10, 2019 Assessment & Plan (1) Alcoholism: This is a 69 yr old who has significant PMH of Hypothyroidism, migraine, hx of alcoholism, depression with anxiety who presents to ED 2/2 to increased anxiety, sleeplessness and binge drinking. IN ED pt was hemodynamically stable. Lab work notable for H&H 14.6 and 43.2, platelets 77, K3.3, anion gap 21, total bili 1.7, AST 161, ALT 136, TSH 0.326, ethyl alcohol 204.4 In ED she received 1 g IV Ativan, banana bag and 1 L of IVF. Pt had been abstinent of alcohol for several years until yesterday. Has been having significant increase in anxiety and depression over past two weeks. Admit to PCU Gabapentin withdrawal protocol Ativan PRN daily IV thiamine and folic acid D5 NS 80cc/hr due to poor po intake x 2 L seizure precautions - pt has prior hx of withdrawal seizure (2) Hypokalemia: K 3.3 on admission replete and monitor Hypomagnesemia - replete and monitor Hypophosphatemia -replete and monitor (3) Transaminitis: -LFTs elevated, continue to monitor -Right upper quadrant ultrasound obtained shows fatty infiltration of the liver with suspected cirrhosis. No gallstones or biliary ductal dilatation. Pancreas partially obscured. -Recommend follow-up with [facility] (4) Thrombocytopenia: Pancytopenia secondary to alcohol use plt 77 -> 40, no s/sx of bleeding hx of cirrhosis - had followed [facility] in past pt also with transaminitis T bili 1.7, AST 161, ALT 136 obtain RUQ U/S, MELD 10 recommend follow up with [facility] as outpt monitor CMP (5) Depression with anxiety: on citalopram pt with increased depression and anxiety, very tearful appears situational with family and work contributing to relapse with alcohol Psychiatry consulted, recommendations sent to PCP Patient wishes to follow-up with AA meetings as outpatient and therapy would reassess daily prn po ativan ordered as well (6) Hypothyroidism: Continue levothyroxine TSH low normal 0.326 Would recommend recheck TSH 2 weeks post hospitalization If continues to be low could be contributing to increased anxiety (7) DVT prophylaxis: SCD/TEDS, Plt 77 -> 40 monitor and reassess daily need for chemical prophylaxis Disposition: admit to PCU due to concern for complicated withdrawal Follow up: PCP Dr. Maldonado upon discharge along with [facility] follow up, recommend continued AA meetings Admission and Anticipated Discharge Date Admission Date: December 08, 2019 Subjective Patient sitting up in bed, in no acute distress however still quite anxious, and tremulous. Electrolytes need replaced and monitored. Pt aware. She is more anxious about being in the hospital and teary. Also discussed thrombocytopenia, liver US and need for GO follow up. Seen by psychiatry yesterday. Currently denies any fevers, chills, chest pain, shortness of breath, abdominal pain, nausea vomiting. Review of Systems Review of Systems: All systems reviewed & are unremarkable except as noted in HPI & below Constitutional: no fever and no chills Respiratory: no cough and no dyspnea Cardiovascular: no chest pain and no palpitations Gastrointestinal: no abdominal pain, no nausea and no vomiting Neurologic: + tremor(s) Psychiatric: + anxiety Physical Exam Physical Exam: Constitutional: WD/WN, anxious and little tearful, F, vitals as above, NAD, sitting up in bed Head: Normocephalic, Atraumatic Eyes: PERRL, EOMI, conjunctivae normal, anicteric sclerae ENMT: external ear and nose normal, oropharynx normal Neck: trachea midline, no thyromegaly normal visual inspection Respiratory: normal respiratory effort, lungs clear to auscultation, no wheeze, rales, rhonchi. Normal insp/exp effort, no accessory muscle use Cardiovascular: RRR, no murmur, no edema Vessels: no JVD or carotid bruit Chest: normal inspection of chest Abdomen: normal bowel sounds, soft, nontender Musculoskeletal: no cyanosis or clubbing, extremities motor strength 5/5 Skin: no rashes, warm and dry normal turgor Neurologic: PERRL, EOMI,no face palsy, no dysarthria, +tremor, CN's II-XI intact bilaterally and moves all extremities Psychiatric: A+Ox3, euthymic affect Results & Data Results & Data ([facility]) Vital Signs (Past 12 Hours) Vital Signs Temp Pulse Pulse Resp BP BP Pulse Ox 12/10/19 07:39 37.0 C 71 20 148/86 H 95 12/10/19 03:01 36.8 C 79 19 126/82 96 12/10/19 00:00 36.9 C 73 16 127/85 98 12/09/19 23:16 36.9 C 73 14 127/85 98 12/09/19 23:00 69 Laboratory Results 12/10/19 12/10/19 12/09/19 Range/Units 05:15 05:15 14:20 WBC 2.43 L (4.8-10.8) K/uL RBC 3.80 L (4.2-5.4) M/uL Hgb 12.3 (12.0-16.0) g/dL Hct 37.1 (37-47) % MCV 97.6 (80-100) fL MCH 32.4 (25-34) pg MCHC 33.2 (32-36) g/dL RDW Std Deviation 52.2 H (36.4-46.3) fL RDW Coeff of Artur 14.6 H (11.5-14.5) % Plt Count 38 L (130-400) K/uL MPV 9.5 (7.4-10.4) fL Sodium 139 (136-145) mmol/L Potassium 3.4 L (3.5-5.1) mmol/L Chloride 102 (98-107) mmol/L Carbon Dioxide 30 (21-32) mmol/L Anion Gap 7.0 (3-11) BUN 11 (7-18) mg/dl Creatinine 0.75 (0.6-1.2) mg/dl Est Cr Clr Drug Dosing 72.2 ml/min Est GFR ( Amer) 92.9 Est GFR (Non-Af Amer) 80.2 BUN/Creatinine Ratio 15.0 (10-20) Glucose 82 (70-99) mg/dl Calcium 8.6 (8.5-10.1) mg/dl Phosphorus 1.7 L (2.5-4.9) mg/dl Magnesium 1.7 L (1.8-2.4) mg/dl Total Bilirubin 1.7 H (0.2-1) mg/dl AST 76 H (15-37) U/L ALT 87 H (12-78) U/L Alkaline Phosphatase 63 (45-117) U/L Total Protein 6.4 (6.4-8.2) gm/dl Albumin 3.5 (3.4-5.0) gm/dl Globulin 2.9 (2.5-4.0) gm/dl Albumin/Globulin Ratio 1.2 (0.9-2) Urine Color Urine Appearance (Clear) Urine pH (4.5-7.5) Ur Specific [place] (1.000-1.030) Urine Protein (Negative) Urine Glucose (UA) (Negative) Urine Ketones (Negative) Urine Blood (Negative) Urine Nitrite (Negative) Urine Bilirubin (Negative) Urine Urobilinogen (Negative) Ur Leukocyte Esterase (Negative) Urine WBC (Auto) (0-5) /hpf Urine RBC (Auto) (0-4) /hpf U Hyaline Cast (Auto) (0-5) /lpf U Epithel Cells (Auto) (0-5) /lpf Urine Bacteria (Auto) (Negative) Urine Opiates Screen Neg (Neg) Ur Methadone, Qual Neg (Neg) Urine Barbiturates Neg (Neg) Ur Phencyclidine (PCP) Neg (Neg) U Amphetamin/Meth Scrn Neg (Neg) MDMA (Ecstasy) Screen Neg (Neg) U Benzodiazepines Scrn Neg (Neg) Ur Cocaine Metabolite Neg (Neg) U Marijuana (THC) Screen Neg (Neg) 12/09/19 12/09/19 Range/Units 14:20 07:09 WBC (4.8-10.8) K/uL RBC (4.2-5.4) M/uL Hgb (12.0-16.0) g/dL Hct (37-47) % MCV (80-100) fL MCH (25-34) pg MCHC (32-36) g/dL RDW Std Deviation (36.4-46.3) fL RDW Coeff of Artur (11.5-14.5) % Plt Count (130-400) K/uL MPV (7.4-10.4) fL Sodium (136-145) mmol/L Potassium (3.5-5.1) mmol/L Chloride (98-107) mmol/L Carbon Dioxide (21-32) mmol/L Anion Gap (3-11) BUN (7-18) mg/dl Creatinine (0.6-1.2) mg/dl Est Cr Clr Drug Dosing ml/min Est GFR ( Amer) Est GFR (Non-Af Amer) BUN/Creatinine Ratio (10-20) Glucose (70-99) mg/dl Calcium (8.5-10.1) mg/dl Phosphorus 1.8 L D (2.5-4.9) mg/dl Magnesium (1.8-2.4) mg/dl Total Bilirubin (0.2-1) mg/dl AST (15-37) U/L ALT (12-78) U/L Alkaline Phosphatase (45-117) U/L Total Protein (6.4-8.2) gm/dl Albumin (3.4-5.0) gm/dl Globulin (2.5-4.0) gm/dl Albumin/Globulin Ratio (0.9-2) Urine Color [place] Urine Appearance Clear (Clear) Urine pH 6.0 (4.5-7.5) Ur Specific [place] 1.025 (1.000-1.030) Urine Protein 2+ H (Negative) Urine Glucose (UA) Negative (Negative) Urine Ketones 2+ H (Negative) Urine Blood Negative (Negative) Urine Nitrite Negative (Negative) Urine Bilirubin 2+ H (Negative) Urine Urobilinogen Positive H (Negative) Ur Leukocyte Esterase Trace H (Negative) Urine WBC (Auto) 1-5 (0-5) /hpf Urine RBC (Auto) 0-4 (0-4) /hpf U Hyaline Cast (Auto) 1-5 (0-5) /lpf U Epithel Cells (Auto) >30 H (0-5) /lpf Urine Bacteria (Auto) Negative (Negative) Urine Opiates Screen (Neg) Ur Methadone, Qual (Neg) Urine Barbiturates (Neg) Ur Phencyclidine (PCP) (Neg) U Amphetamin/Meth Scrn (Neg) MDMA (Ecstasy) Screen (Neg) U Benzodiazepines Scrn (Neg) Ur Cocaine Metabolite (Neg) U Marijuana (THC) Screen (Neg) Medications Administered Current Inpatient Medications Acetaminophen (Acetaminophen 325 Mg Tab) 650 mg PO Q4H PRN PRN Reason: Pain or Fever Stop: 01/07/20 18:12 Last Admin: 12/09/19 00:22 Dose: 650 mg Documented by: Al Hydrox/Mg Hydrox/Simethicone (Aluminum/Magnesium Susp 30 Ml Udc) 15 ml PO Q4H PRN PRN Reason: Dyspepsia Stop: 01/07/20 18:12 Aspirin (Aspirin 81 Mg Ectab) 81 mg PO DAILY [facility] Stop: 01/08/20 08:59 Last Admin: 12/10/19 07:53 Dose: 81 mg Documented by: Citalopram Hydrobromide (Citalopram 40 Mg Tab) 40 mg PO QAM [facility] Stop: 01/08/20 08:59 Last Admin: 12/10/19 07:53 Dose: 40 mg Documented by: Cyanocobalamin (Cyanocobalamin 500 Mcg Tablet (Vitamin B-12)) 1,000 mcg PO QAM [facility] Stop: 01/08/20 08:59 Last Admin: 12/10/19 07:55 Dose: 1,000 mcg Documented by: Gabapentin (Gabapentin 600 Mg Tab) 600 mg PO Q12H [facility] Stop: 12/11/19 04:01 Gabapentin (Gabapentin 600 Mg Tab) 600 mg PO Q24H [facility] Stop: 12/12/19 04:01 Lorazepam (Ativan) 1 mg in 2 mls @ 2 mls/min IV UD PRN; Protocol PRN Reason: EtOH Withdrawl AWSS Score 6,7 Stop: 01/07/20 18:12 Lorazepam (Ativan) 2 mg in 4 mls @ 4 mls/min IV UD PRN; Protocol PRN Reason: EtOH Withdrawl AWSS Score 8,9 Stop: 01/07/20 18:12 Lorazepam (Ativan) 3 mg in 6 mls @ 4 mls/min IV ONCE PRN; Protocol PRN Reason: EtOH Withdrawl AWSS Score >=10 Stop: 01/07/20 18:12 Folic Acid 1 mg/ Syringe 10 mls @ 5 [facility]ls[facility] [place]: 01/08/20 08:59 Last Admin: 12/10/19 07:56 Dose: 5 mls/min Documented by: Thiamine HCl 100 mg/ Syringe 10 mls @ 2 mls/min IV QAM [facility] Stop: 01/08/20 08:59 Last Admin: 12/10/19 07:56 Dose: 2 mls/min Documented by: Magnesium Sulfate/Dextrose (Magnesium Sulfate / D5w) 1 gm in 100 mls @ 50 ml s/hr IV ONE ONE Stop: 12/10/19 10:44 Potassium Phosphate 15 mmol/ (Sodium Chloride) 255 mls @ 88 mls/hr IV 0845 ONE Stop: 12/10/19 11:38 Levothyroxine Sodium (Levothyroxine Sodium 25 Mcg Tablet) 25 mcg PO DAILYBB [facility] Stop: 01/08/20 06:29 Last Admin: 12/10/19 05:31 Dose: 25 mcg Documented by: Lorazepam (Lorazepam 0.5 Mg Tab) 0.5 mg PO Q6H PRN PRN Reason: Anxiety Stop: 01/09/20 01:37 Magnesium Hydroxide (Magnesium Hydroxide Susp 30 Ml Udc) 30 ml PO Q12H PRN PRN Reason: Constipation Stop: 01/07/20 18:12 Ondansetron HCl (Ondansetron Inj 2 Mg/Ml 2 Ml Vial) 4 mg IV Q6H PRN PRN Reason: Nausea Stop: 01/07/20 18:12 Polyethylene Glycol (Polyethylene (Miralax) 17 Gm Pack) 17 gm PO DAILY PRN PRN Reason: Constipation Stop: 01/07/20 18:12 Potassium Chloride (Potassium Chloride 20 Meq Tabcr) 40 meq PO NOW ONE Stop: 12/10/19 08:46 Vitamin D (Cholecalciferol 1,000 Units 25 Mcg Tab) 3,[facility] [place]: 01/08/20 08:59 Last Admin: 12/10/19 07:54 Dose: 3,000 units Documented by:
[2019-12-10] MEDS ORDERED: POTASSIUM PHOSPHATE 15 MMOL in SODIUM CHLORIDE 0.9% 250 ML IV ONE (08:45)
[2019-12-10] MEDS ORDERED: MAGNESIUM SULFATE / D5W 1 GM/100 ML BAG IV ONE (08:45)
[2019-12-10] MEDS ORDERED: POTASSIUM CHLORIDE 20 MEQ TABCR PO ONE (08:45)
[2019-12-10 16:09] LABS: BUN Creatinine Ratio 13.8 (10-20); Calcium 8.8 mg/dl (8.5-10.1); Creatinine Clr Calc Pharmacy 64.5 ml/min; Est GFR (Non-African American) 69.9; Magnesium 1.9 mg/dl (1.8-2.4); Potassium 3.7 mmol/L (3.5-5.1)
[2019-12-10 16:10] LABS: Phosphorus 3.5 mg/dl (2.5-4.9)
[2019-12-11] MEDS: GABAPENTIN 600 MG TAB PO SCH (05:14)
[2019-12-11] MEDS: LEVOTHYROXINE SODIUM 25 MCG TABLET PO SCH (05:14)
[2019-12-11 06:41] LABS: Albumin Level 3.2 gm/dl (3.4-5.0); BUN Creatinine Ratio 16.6 (10-20); Calcium 8.7 mg/dl (8.5-10.1); Creatinine Clr Calc Pharmacy 82.8 ml/min; Est GFR (African American) 103.5; Est GFR (Non-African American) 89.3; Magnesium 1.9 mg/dl (1.8-2.4)
[2019-12-11 06:44] LABS: Albumin Globulin Ratio 1.2 (0.9-2); Bilirubin,Total 1.3 mg/dl (0.2-1); Globulin 2.7 gm/dl (2.5-4.0); Phosphorus 3.5 mg/dl (2.5-4.9); Total Protein 5.9 gm/dl (6.4-8.2)
[2019-12-11] MEDS: CITALOPRAM 40 MG TAB PO SCH (07:24)
[2019-12-11] MEDS: CYANOCOBALAMIN 500 MCG TABLET (VITAMIN B-12) PO SCH (07:24)
[2019-12-11] MEDS: FOLIC ACID 1 MG in SYRINGE 9.8 ML IV SCH (07:24)
[2019-12-11] MEDS: CHOLECALCIFEROL 1,000 UNITS 25 MCG TAB PO SCH (07:24)
[2019-12-11] MEDS: ASPIRIN 81 MG ECTAB PO SCH (07:24)
[2019-12-11] MEDS: THIAMINE HCL 100 MG in SYRINGE 9 ML IV SCH (07:24)
--- NOTE | 2019-12-11 07:32 | Hospitalist Progress Note ---
Date of Service December 11, 2019 Assessment & Plan (1) Alcoholism: This is a 69 yr old F who has significant PMH of Hypothyroidism, migraine, hx of alcoholism, depression with anxiety who presents to ED secondary to increased anxiety, sleeplessness and binge drinking. IN ED pt was hemodynamically stable. Lab work notable for H&H 14.6 and 43.2, platelets 77, K3.3, anion gap 21, total bili 1.7, AST 161, ALT 136, TSH 0.326, ethyl alcohol 204.4 In ED she received 1 g IV Ativan, banana bag and 1 L of IVF. Pt had been abstinent of alcohol for several years until day prior to admission. Has been having significant increase in anxiety and depression over past two weeks. Admitted to PCU initially, due to concern for complicated withdrawal Gabapentin withdrawal protocol Ativan PRN daily IV thiamine and folic acid D5 NS 80cc/hr due to poor po intake x 2 L seizure precautions - pt has prior hx of withdrawal seizure Clinically patient is much improved. Anxiety is well controlled, there is no more tremor. Electrolytes normalized. There is no tachycardia or hypotension. Patient will follow-up as outpatient with her PCP and GI. (2) Hypokalemia: K 3.3 on admission replete and monitor Hypomagnesemia - replete and monitor Hypophosphatemia -replete and monitor -Recommend to check electrolytes as outpatient, at the next PCP appointment (3) Transaminitis: -LFTs elevated, continue to monitor -Right upper quadrant ultrasound obtained shows fatty infiltration of the liver with suspected cirrhosis. No gallstones or biliary ductal dilatation. Pancreas partially obscured. -Recommend follow-up with [facility] (4) Thrombocytopenia: Pancytopenia secondary to alcohol use plt 77 -> 40, no s/sx of bleeding hx of cirrhosis - had followed [facility] in past pt also with transaminitis T bili 1.7, AST 161, ALT 136 obtain RUQ U/S, MELD 10 recommend follow up with [facility] as outpt monitor CMP , recommend to recheck CMP as outpatient (5) Depression with anxiety: on citalopram pt with increased depression and anxiety, very tearful appears situational with family and work contributing to relapse with alcohol Psychiatry consulted, recommendations sent to PCP Patient wishes to follow-up with AA meetings as outpatient and therapy reassess daily prn po ativan ordered as well while inpt (6) Hypothyroidism: Continue levothyroxine TSH low normal 0.326 Would recommend recheck TSH 2 weeks post hospitalization If continues to be low could be contributing to increased anxiety (7) DVT prophylaxis: SCD/TEDS, Plt 77 -> 40 monitor and reassess daily need for chemical prophylaxis Disposition: admit to PCU initially due to concern for complicated withdrawal Follow up: PCP Dr. Maldonado upon discharge along with [facility] follow up, recommend continued AA meetings Admission and Anticipated Discharge Date Admission Date: December 08, 2019 Subjective Patient is sitting up in bed, in no acute distress. She says she feels well, and had a good night sleep. She is inquiring about going home. Discussed in detail follow-up with primary care doctor and GI. Patient in agreement. Currently denies any fevers, chills, chest pain, shortness of breath, abdominal pain, nausea vomiting. Review of Systems Review of Systems: All systems reviewed & are unremarkable except as noted in HPI & below Constitutional: no fever and no chills Respiratory: no cough and no dyspnea Cardiovascular: no chest pain and no palpitations Gastrointestinal: no abdominal pain, no nausea and no vomiting Physical Exam Physical Exam: Constitutional: WD/WN, vitals as above, NAD, sitting up in bed Head: Normocephalic, Atraumatic Eyes: PERRL, EOMI, conjunctivae normal, anicteric sclerae ENMT: external ear and nose normal, oropharynx normal Neck: trachea midline, no thyromegaly normal visual inspection Respiratory: normal respiratory effort, lungs clear to auscultation, no wheeze, rales, rhonchi. Normal insp/exp effort, no accessory muscle use Cardiovascular: RRR, no murmur, no edema Vessels: no JVD or carotid bruit Chest: normal inspection of chest Abdomen: normal bowel sounds, soft, nontender Musculoskeletal: no cyanosis or clubbing, extremities motor strength 5/5 Skin: no rashes, warm and dry normal turgor Neurologic: PERRL, EOMI,no face palsy, no dysarthria, no tremor, CN's II-XI intact bilaterally and moves all extremities Psychiatric: A+Ox3, euthymic affect Results & Data Results & Data ([facility]) Vital Signs (Past 12 Hours) Vital Signs Temp Pulse Resp BP Pulse Ox 12/11/19 03:49 36.9 C 79 20 148/83 H 96 12/10/19 23:06 37.0 C 106 H 20 157/92 H 97 Laboratory Results 12/11/19 12/10/19 Range/Units 05:48 15:35 Sodium 142 138 (136-145) mmol/L Potassium 4.0 3.7 (3.5-5.1) mmol/L Chloride 106 103 (98-107) mmol/L Carbon Dioxide 32 30 (21-32) mmol/L Anion Gap 4.0 5.0 (3-11) BUN 11 12 (7-18) mg/dl Creatinine 0.65 0.84 (0.6-1.2) mg/dl Est Cr Clr Drug Dosing 82.8 64.5 ml/min Est GFR ( Amer) 103.5 81.0 Est GFR (Non-Af Amer) 89.3 69.9 BUN/Creatinine Ratio 16.6 13.8 (10-20) Glucose 96 100 H (70-99) mg/dl Calcium 8.7 8.8 (8.5-10.1) mg/dl Phosphorus 3.5 3.5 D (2.5-4.9) mg/dl Magnesium 1.9 1.9 (1.8-2.4) mg/dl Total Bilirubin 1.3 H (0.2-1) mg/dl AST 79 H (15-37) U/L ALT 85 H (12-78) U/L Alkaline Phosphatase 60 (45-117) U/L Total Protein 5.9 L (6.4-8.2) gm/dl Albumin 3.2 L (3.4-5.0) gm/dl Globulin 2.7 (2.5-4.0) gm/dl Albumin/Globulin Ratio 1.2 (0.9-2) Medications Administered Current Inpatient Medications Acetaminophen (Acetaminophen 325 Mg Tab) 650 mg PO Q4H PRN PRN Reason: Pain or Fever Stop: 01/07/20 18:12 Last Admin: 12/09/19 00:22 Dose: 650 mg Documented by: Al Hydrox/Mg Hydrox/Simethicone (Aluminum/Magnesium Susp 30 Ml Udc) 15 ml PO Q4H PRN PRN Reason: Dyspepsia Stop: 01/07/20 18:12 Aspirin (Aspirin 81 Mg Ectab) 81 mg PO DAILY [facility] Stop: 01/08/20 08:59 Last Admin: 12/11/19 07:24 Dose: 81 mg Documented by: Citalopram Hydrobromide (Citalopram 40 Mg Tab) [facility] [place] [place] Stop: 01/08/20 08:59 Last Admin: 12/11/19 07:24 Dose: 40 mg Documented by: Cyanocobalamin (Cyanocobalamin 500 Mcg Tablet (Vitamin B-12)) 1,000 mcg PO QAM [facility] Stop: 01/08/20 08:59 Last Admin: 12/11/19 07:24 Dose: 1,000 mcg Documented by: Gabapentin (Gabapentin 600 Mg Tab) 600 mg PO Q24H [facility] Stop: 12/12/19 04:01 Lorazepam (Ativan) 1 mg in 2 mls @ 2 mls/min IV UD PRN; Protocol PRN Reason: EtOH Withdrawl AWSS Score 6,7 Stop: 01/07/20 18:12 Lorazepam (Ativan) 2 mg in 4 mls @ 4 mls/min IV UD PRN; Protocol PRN Reason: EtOH Withdrawl AWSS Score 8,9 Stop: 01/07/20 18:12 Lorazepam (Ativan) 3 mg in 6 mls @ 4 mls/min IV ONCE PRN; Protocol PRN Reason: EtOH Withdrawl AWSS Score >=10 Stop: 01/07/20 18:12 Folic Acid 1 mg/ Syringe 10 mls @ 5 mls[facility] [place] [place] Stop: 01/08/20 08:59 Last Admin: 12/11/19 07:24 Dose: 5 mls/min Documented by: Thiamine HCl 100 mg/ Syringe 10 mls @ 2 mls/min IV QAM [facility] Stop: 01/08/20 08:59 Last Admin: 12/11/19 07:24 Dose: 2 mls/min Documented by: Levothyroxine Sodium (Levothyroxine Sodium 25 Mcg Tablet) [facility] Stop: 01/08/20 06:29 Last Admin: 12/11/19 05:14 Dose: 25 mcg Documented by: Lorazepam (Lorazepam 0.5 Mg Tab) 0.5 mg PO Q6H PRN PRN Reason: Anxiety Stop: 01/09/20 01:37 Last Admin: 12/10/19 22:47 Dose: 0.5 mg Documented by: Magnesium Hydroxide (Magnesium Hydroxide Susp 30 Ml Udc) 30 ml PO Q12H PRN PRN Reason: Constipation Stop: 01/07/20 18:12 Ondansetron HCl (Ondansetron Inj 2 Mg/Ml 2 Ml Vial) 4 mg IV Q6H PRN PRN Reason: Nausea Stop: 01/07/20 18:12 Polyethylene Glycol (Polyethylene (Miralax) 17 Gm Pack) 17 gm PO DAILY PRN PRN Reason: Constipation Stop: 01/07/20 18:12 Vitamin D (Cholecalciferol 1,000 Units 25 Mcg Tab) 3,000 [facility] [place] [place] Stop: 01/08/20 08:59 Last Admin: 12/11/19 07:24 Dose: 3,000 units Documented by:
--- NOTE | 2019-12-11 08:31 | Discharge Summary ---
Date of Service December 11, 2019 Admission HPI Per Admitting Provider This is a 69 yr old who has significant PMH of Hypothyroidism, migraine, hx of alcoholism, depression with anxiety who presents to ED 2/2 to increased anxiety, sleeplessness and binge drinking. Pt had been Sober for the past 4 years and attended AA regularly. She had 1 drink a few months back when she was in [place] and just recently has been experiencing significant anxiety and depression for the past 2 weeks. She has not ate for the past 5 days, but has been pushing oral fluids with water and gatorade. 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 She is very overwhelmed and has not been sleeping for the past 2 weeks. She has restless nights with racing thoughts. When she closes her eyes she feels like she visualizes unrealistic things and describes them as hallucinations. Yesterday and last evening she starting drinking again, Beni Lai. Initially she said only about 6 oz, but the elic ited it was ~ 10 - 6oz drinks. "I don't really know because I just started drinking from the bottle." She feels very upset and angry at herself. When she became sober and was attending AA she felt very good about herself and this time she does not. She has spoken to a counselor in the past, but currently does not seen anyone from psychiatry. She does take citalopram 40mg prescribed by her PCP. She admits to hx of withdrawal seizure many years ago. She never required AEDS and she did see neurology for a short time. She denies any hx of tobacco or other elicit drug use. Prior hx of, "pre cirrhosis," but does not follow with GI. Currently she feels anxious and upset. She denies f/c/s, dizziness, lightheaded, chest pain, sob, cough, abdominal pain, emesis, diarrhea, melena, dysuria, increased urg/freq. She feels nausea due to not eating much. IN ED pt was hemodynamically stable. Lab work notable for H&H 14.6 and 43.2, platelets 77, K3.3, anion gap 21, total bili 1.7, AST 161, ALT 136, TSH 0.326, ethyl alcohol 204.4 In ED she received 1 g IV Ativan, banana bag and 1 L of IVF. Admission Exam Per Admitting Provider Constitutional: WD/WN, anxious and tearful, F, vitals as above, NAD, sitting up in bed, pleasant, conversing easily Head: Normocephalic, Atraumatic Eyes: PERRL, conjunctivae normal, anicteric sclerae ENMT: external ear and nose normal, oropharynx normal Neck: trachea midline, no thyromegaly normal visual inspection Respiratory: normal respiratory effort, lungs clear to auscultation, no wheeze, rales, rhonchi. Normal insp/exp effort, no accessory muscle use Cardiovascular: RRR, no murmur, no edema Vessels: no JVD or carotid bruit Chest: normal inspection of chest Abdomen: normal bowel sounds, soft, nontender, no hepatosplenomegaly Musculoskeletal: no cyanosis or clubbing, extremities motor strength 5/5 Skin: no rashes, warm and dry normal turgor Neurologic: PERRL, EOMI, accommodation nl, no face palsy, no dysarthria CN's II-XI intact bilaterally and moves all extremities Psychiatric: A+Ox3, euthymic affect Lymphatic: no cervical or axillary lymphadenopathy : deferred Principal Diagnosis Alcohol intoxication, alcohol withdrawal Electrolyte abnormalities Elevated liver enzymes Thrombocytopenia Anxiety Discharge Exam Constitutional: WD/WN, vitals as above, NAD, sitting up in bed Head: Normocephalic, Atraumatic Eyes: PERRL, EOMI, conjunctivae normal, anicteric sclerae ENMT: external ear and nose normal, oropharynx normal Neck: trachea midline, no thyromegaly normal visual inspection Respiratory: normal respiratory effort, lungs clear to auscultation, no wheeze, rales, rhonchi. Normal insp/exp effort, no accessory muscle use Cardiovascular: RRR, no murmur, no edema Vessels: no JVD or carotid bruit Chest: normal inspection of chest Abdomen: normal bowel sounds, soft, nontender Musculoskeletal: no cyanosis or clubbing, extremities motor strength 5/5 Skin: no rashes, warm and dry normal turgor Neurologic: PERRL, EOMI,no face palsy, no dysarthria, no tremor, CN's II-XI intact bilaterally and moves all extremities Psychiatric: A+Ox3, euthymic affect Discharge Data Allergies Allergy/AdvReac Type Severity Reaction Status Date / Time Penicillins AdvReac Severe SEVERE Verified 12/08/19 13:26 DIARRHEA Consultations 12/08/19 18:13 Consult Case Management - Discharge Planning Routine 12/09/19 11:33 Consult Psychiatry Routine Ordered Studies 12/08/19 13:29 CT head/brain wo con Stat IMPRESSION: No acute intracranial abnormality. 12/08/19 16:56 US abdomen limited Routine IMPRESSION: 1. Fatty infiltration of the liver with suspected cirrhosis. 2. No gallstones or biliary ductal dilatation. 3. Partially obscured pancreas. Hospital Course (1) Alcoholism: This is a 69 yr old F who has significant PMH of Hypothyroidism, migraine, hx of alcoholism, depression with anxiety who presents to ED secondary to increased anxiety, sleeplessness and binge drinking. IN ED pt was hemodynamically stable. Lab work notable for H&H 14.6 and 43.2, platelets 77, K3.3, anion gap 21, total bili 1.7, AST 161, ALT 136, TSH 0.326, ethyl alcohol 204.4 In ED she received 1 g IV Ativan, banana bag and 1 L of IVF. Pt had been abstinent of alcohol for several years until day prior to admission. Has been having significant increase in anxiety and depression over past two weeks. Admitted to PCU initially, due to concern for complicated withdrawal Gabapentin withdrawal protocol Ativan PRN daily IV thiamine and folic acid D5 NS 80cc/hr due to poor po intake x 2 L seizure precautions - pt has prior hx of withdrawal seizure Clinically patient is much improved. Anxiety is well controlled, there is no more tremor. Electrolytes normalized. There is no tachycardia or hypotension. Patient will follow-up as outpatient with her PCP and GI. (2) Hypokalemia: K 3.3 on admission replete and monitor Hypomagnesemia - replete and monitor Hypophosphatemia -replete and monitor -Recommend to check electrolytes as outpatient, at the next PCP appointment (3) Transaminitis: -LFTs elevated, continue to monitor -Right upper quadrant ultrasound obtained shows fatty infiltration of the liver with suspected cirrhosis. No gallstones or biliary ductal dilatation. Pancreas partially obscured. -Recommend follow-up with [facility] (4) Thrombocytopenia: Pancytopenia secondary to alcohol use plt 77 -> 40, no s/sx of bleeding hx of cirrhosis - had followed [facility] in past pt also with transaminitis T bili 1.7, AST 161, ALT 136 obtain RUQ U/S, MELD 10 recommend follow up with [facility] as outpt monitor CMP , recommend to recheck CMP as outpatient -Platelet count is quite low, hold aspirin, recommend to recheck CBC and discuss with PCP when it is appropriate again to restart aspirin (5) Depression with anxiety: on citalopram pt with increased depression and anxiety, very tearful appears situational with family and work contributing to relapse with alcohol Psychiatry consulted, recommendations sent to PCP Patient wishes to follow-up with AA meetings as outpatient and therapy reassess daily prn po ativan ordered as well while inpt (6) Hypothyroidism: Continue levothyroxine TSH low normal 0.326 Would recommend recheck TSH 2 weeks post hospitalization If continues to be low could be contributing to increased anxiety (7) DVT prophylaxis: SCD/TEDS, Plt 77 -> 40 monitor and reassess daily need for chemical prophylaxis while inpt Disposition: admit to PCU initially due to concern for complicated withdrawal Follow up: PCP Dr. Maldonado upon discharge along with [facility] follow up, recommend continued AA meetings Total Time Total Time Spent Total Time Spent (In Minutes): 40 Total Time Includes: Examination of the Patient, Discharge Planning and Medication Reconciliation Discharge Plan Discharge Items Patient Disposition: Home - Self-Care Reason For Visit: ALCOHOL ABUSE, HX OF COMPLICATED WITHDRAWAL Discharge Diagnosis: Alcohol intoxication, alcohol withdrawal Electrolyte abnormalities Elevated liver enzymes Thrombocytopenia Anxiety Activity: Per Instructions section Non-emergency contact: Primary Care Provider Call non-emergency contact if: you have any medication questions and your symptoms worsen Follow-up/Referrals: Shelbi Maldonado MD [Primary Care Provider] - (Date & Time 12/15/2019 2:20 PM Provider Shelbi Maldonado MD Department General Internal Medicine [facility] ) Diet: Regular Addtl Attending Provider Instructions: Follow-up with primary care provider on December 14. The appointment was already scheduled for you. You will also need to follow-up with gastroenterology. Your PCP office can arrange this. Recommend to obtain blood work, CBC, CMP, Phosphorus level in 1 week. Recommend taking thiamine and folic acid daily. Given your low platelet count, do not recommend to take aspirin at this time. Have your blood work rechecked at your next PCP appointment, and discuss with your primary care doctor when it is appropriate again for you to restart aspirin. Please bring this discharge paperwork with you to your next appointment with your primary care doctor for her to review. Pending Studies at Discharge: No Stand-Alone Forms: [facility], Smoking Cessation, Suicide Prevention Resources Medications and DC Order Prescriptions: New thiamine HCl (vitamin B1) 100 mg tablet 100 mg PO DAILY Qty: 30 RF: 0 folic acid 1 mg tablet 1 mg PO DAILY Qty: 30 RF: 0 cyanocobalamin (vitamin B-12) 500 mcg Tablet 1,000 mcg PO QAM 30 Days Qty: 60 RF: 0 Continued citalopram 40 mg Tablet 40 mg PO QAM RF: 0 sumatriptan succinate [Imitrex] 100 mg Tablet 1 tab PO UD PRN (Reason: Migraine Headache) RF: 0 cyanocobalamin (vitamin B-12) [Vitamin B-12] 1,000 mcg Tablet 1,000 mcg PO QAM RF: 0 cholecalciferol (vitamin D3) [Vitamin D3] 1,000 unit Capsule 3,000 unit PO QAM RF: 0 levothyroxine 25 mcg Capsule 25 mcg PO QAM RF: 0 Discontinued aspirin [Ecotrin Low Strength] 81 mg tablet,delayed release (DR/EC) 81 mg PO DAILY RF: 0 Discharge Orders: Discharge Order (Routine); Ordered 12/11/19 Ordered By: Mikie Dugan Admission Data Admit Date/Time: 12/08/19 16:21 Attending Provider: Mikie Dugan Admit Provider: Gissel Bradley Primary Care Provider: Shelbi Maldonado Other Providers: Gissel Bradley ; Yamil Ndiaye ; Joellen Lujan ; Morgan Tomas ; Alonso Dominguez ; Allen Haynes ; Keara Thomas ; Yusuf Guo ; Dona Shabazz ; Sonia Parkinson ; Arielle Roblero ; Juan Alberto Beckett I. ; Tootie Gutierrez ; Katia Butler ; Ariana Degroot ; Casey Milligan
[2019-12-12] MEDS ORDERED: GABAPENTIN 600 MG TAB PO SCH (04:00)
== END 2019-12-11 10:05 | disposition home or self-care (01) | DRG 896 ==
LOC: ED 11:36 → 2S 16:21 → SUATTDRO 16:21 → 2S 17:28 → 2W 12-10 15:33

== ENCOUNTER 2020-07-04 21:58 | Inpatient (IN) ==
[2020-07-04] MEDS ORDERED: LORazepam 1 MG/2 ML VIAL IV STA (22:21)
[2020-07-04] MEDS ORDERED: SODIUM CHLORIDE 0.9% 1000ML 1,000 ML IV ONE ×2 (22:21→23:50)
[2020-07-04 22:54] LABS: Hematocrit (blood only) 38.2 % (37-47); Hemoglobin 13.8 g/dL (12.0-16.0); Immature Granulocytes # (auto) 0.01 K/uL (0.00-0.02); Immature Granulocytes % (auto) 0.2 %; Lymphocytes # (auto) 0.91 K/uL (1.2-3.4); Lymphocytes % (auto) 17.3 %; Mean Corpuscular Hemoglobin 32.6 pg (25-34); Mean Corpuscular Hgb Conc 36.1 g/dL (32-36); Mean Corpuscular Volume 90.3 fL (80-100); Mean Platelet Volume 9.6 fL (7.4-10.4); Monocytes # (auto) 0.19 K/uL (0.11-0.59); Monocytes % (auto) 3.6 %; Neutrophils # (auto) 4.14 K/uL (1.4-6.5); Neutrophils % (auto) 78.9 %; Platelet Count 129 K/uL (130-400); RDW Coefficient of Variation 14.7 % (11.5-14.5); RDW Standard Deviation 48.1 fL (36.4-46.3); Red Blood Count 4.23 M/uL (4.2-5.4); White Blood Count 5.25 K/uL (4.8-10.8)
[2020-07-04 23:02] LABS: Appearance Urine Clear (Clear); Bacteria Urine Automated Negative (Negative); Bilirubin Urine 2+ (Negative); Blood Urine Trace (Negative); Color Urine Dark Yellow; Epithelial Cell Urine Auto >30 /lpf (0-5); Glucose Urine UA Negative (Negative); Ketones Urine 4+ (Negative); Leukocyte Esterase Urine Negative (Negative); Nitrite Urine Negative (Negative); Protein Urine 2+ (Negative); Specific Gravity Urine 1.025 (1.000-1.030); Urobilinogen Urine Negative (Negative)
[2020-07-04 23:37] LABS: Albumin Level 4.2 gm/dl (3.4-5.0); BUN Creatinine Ratio 8.2 (10-20); Bilirubin Direct 0.3 mg/dl (0-0.2); Bilirubin,Total 1.2 mg/dl (0.2-1); Calcium 9.2 mg/dl (8.5-10.1); Creatinine Clr Calc Pharmacy 27.9 ml/min; Est GFR (African American) 31.2; Est GFR (Non-African American) 26.9; Magnesium 1.8 mg/dl (1.8-2.4); Potassium 3.6 mmol/L (3.5-5.1); Total Protein 7.7 gm/dl (6.4-8.2)
[2020-07-05] MEDS ORDERED: THIAMINE HCL 100 MG in SYRINGE 9 ML IV STA (00:05)
[2020-07-05] MEDS ORDERED: GABAPENTIN 600 MG TAB PO STA (00:20)
[2020-07-05 00:21] LABS: INR 1.1 (0.9-1.1); Prothrombin Time 10.7 Seconds (9.0-12.0)
[2020-07-05] MEDS ORDERED: MULTI-VITAMIN INFUSION 10 ML, THIAMINE HCL 100 MG, FOLIC ACID 1 MG in SODIUM CHLORIDE 0... IV ONE (00:22)
[2020-07-05] MEDS ORDERED: LORazepam 0.5 MG/1 ML VIAL IV STA (00:22)
--- NOTE | 2020-07-05 00:23 | Emergency Department Note ---
History of Present Illness General Chief complaint: Alcohol Withdrawal Stated complaint: ALCOHOL DETOX Time Seen by Provider: 07/04/20 22:21 History of Present Illness Provider complaint: Alcohol withdrawal 70-year-old female presents emergency department with her for alcohol withdrawal. Patient states she has been sober 3 months but last week started drinking again. She states she has been drinking every day. 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 She denies any falls. She denies hitting her head. No hematemesis coffee-ground emesis or bilious vomiting. No melena or hematochezia. Home Medications Medication Instructions Recorded Confirmed Type citalopram 40 mg PO DAILY 07/04/20 07/04/20 History cyanocobalamin (vitamin B-12) 1,000 mcg PO DAILY 07/04/20 07/04/20 History [Vitamin B-12] ibuprofen 400 mg PO Q6H PRN 07/04/20 07/04/20 History levothyroxine 25 mcg PO DAILY 07/04/20 07/04/20 History sumatriptan succinate [Imitrex] 100 mg PO UD PRN 07/04/20 07/04/20 History Allergies Allergy/AdvReac Type Severity Reaction Status Date / Time Penicillins AdvReac Severe SEVERE Verified 07/04/20 23:40 DIARRHEA Past Med/Surg History Medical History (Updated 07/05/20 @ 00:52 by Angel Mckee MD) Anxiety Cirrhosis PER RECORDS; NO RECENT ISSUES Depression Hiatal hernia Hypothyroidism Migraine Obesity Seizure 2008 X 1 EPISODE; NO ISSUES SINCE Surgical History History of section History of colonoscopy History of total knee replacement LEFT TKA= 06/25/17= SAB X 1 ATTEMPT + PNB AT [facility] Family History Father Alzheimer disease Irregular heart rhythm Mother Age related osteoporosis Social History Smoking Status: Never smoker Second Hand Exposure: No; Hx Alcohol Use: Yes Alcohol type: hard liquor Alcohol type Comment: Beni alfonso, drinking from the bottle Hx Substance Use: No Preferred Language: Macedonian Communication Ability: Effective General Studies Program Chair Required: No Current Living Situation: Spouse Feels Safe at Home: Yes Assistive Devices: None Review of Systems A total of 10 systems reviewed and were otherwise negative Physical Exam Vital Signs Vital Signs - 24 hr 07/04/20 22:10 07/04/20 22:38 07/04/20 22:49 Temperature 36.8 C Temperature Source Temporal Artery Scan Pulse Rate 138 H 109 H 103 H Pulse Rate from SpO2 Sensor 102 H Respiratory Rate 18 15 16 Blood Pressure 132/73 118/83 Blood Pressure Mean 92 94 Pulse Oximetry 97 98 98 Oxygen Delivery Method Room Air Room Air Room Air Sepsis Recent Fever Within 48 Hours No Sepsis New/Unexplained Change in Mental Status No Sepsis Action Taken by Nursing No Action Required 07/04/20 23:00 07/04/20 23:30 07/05/20 00:00 Temperature Temperature Source Pulse Rate 102 H 105 H 106 H Pulse Rate from SpO2 Sensor 102 H 105 H 106 H Respiratory Rate 17 19 18 Blood Pressure 121/64 119/73 121/75 Blood Pressure Mean 83 88 90 Pulse Oximetry 96 96 97 Oxygen Delivery Method Room Air Room Air Room Air Sepsis Recent Fever Within 48 Hours Sepsis New/Unexplained Change in Mental Status Sepsis Action Taken by Nursing 07/05/20 00:30 Temperature Temperature Source Pulse Rate 106 H Pulse Rate from SpO2 Sensor Respiratory Rate 18 Blood Pressure 121/56 L Blood Pressure Mean 77 Pulse Oximetry 98 Oxygen Delivery Method Room Air Sepsis Recent Fever Within 48 Hours Sepsis New/Unexplained Change in Mental Status Sepsis Action Taken by Nursing Physical Exam GENERAL: She is oriented to person, place, and time. She appears well-developed and well-nourished. She does not appear distressed. Patient has mild tremor. HENT: Exam performed. -Head: Normocephalic and atraumatic. -Right Ear: External ear normal. No mastoid tenderness. -Left Ear: External ear normal. No mastoid tenderness. -Mouth/Throat: The oropharynx is clear and moist. No trismus in the jaw. No dental abscesses or uvula swelling. No oropharyngeal exudate or tonsillar abscesses. EYES: Conjunctivae and EOM are normal. Pupils are equal, round, and reactive to light. Right eye exhibits no discharge. Left eye exhibits no discharge. No scleral icterus. NECK: Normal range of motion. Neck supple. No JVD present. No spinous process tenderness present. No carotid bruit present. No rigidity. No tracheal deviation and normal range of motion present. No Brudzinski's sign and no Kernig's sign noted. CV: Tachycardic rate, regular rhythm, normal heart sounds and intact distal pulses. There is no peripheral edema. Palpable radial pulses bue. PULM/CHEST: Effort normal and breath sounds normal. No respiratory distress. No stridor. She has no wheezes. She has no rales. -Chest Wall: She exhibits no tenderness. ABD: The abdomen is soft. Bowel sounds are normal. She has no distension. No mass is present. There is no tenderness. There is no rebound, no guarding, no Mu rphy's sign and no tenderness at McBurney's point. Rovsig negative MUSC/SKEL: Normal range of motion. There is no peripheral edema, tenderness or deformity. LYMPH: No cervical adenopathy. NEURO: She is alert and oriented to person, place, and time. She has normal strength. No cranial nerve deficit or sensory deficit. Coordination and gait normal. GCS eye subscore is 4. GCS verbal subscore is 5. GCS motor subscore is 6. Cerebellar tests wnl. SKIN: Skin is warm and dry. She is not diaphoretic. PSYCH: She has a normal mood and affect. Behavior is normal. Judgment and thought content normal. Course Course 2221: The patient was evaluated in room C9. A complete history and physical exam was performed Cardiac monitoring: An order was placed for continuous cardiac monitoring. The monitor shows a rate of 130 with sinus tachycardia rhythm 0000: Vital signs improved status post IV fluids and Ativan. Labs show an acute kidney injury with creatinine of 1.8. Patient has a osmolar gap of 48. No anion gap. 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 I did discuss the case with poison control. They recommend adding on a blood gas, Tylenol level and garrett icylate level. They stated there is only symptomatic care to be done for the patient. Patient will be given a banana bag and repeat doses of Ativan. We will admit the patient to the [facility] hospitalist team Dr. Yusuf will be notified. 0106: VBG within normal limits salicylate and Tylenol within normal limits. Administered Medications Discontinued Medications Lorazepam (Ativan) 1 mg in 2 mls @ 2 mls/min IV NOW STA Stop: 07/04/20 22:22 Last Admin: 07/04/20 22:54 Dose: 2 mls/min Documented by: [id number] Sodium Chloride (Nss 1000ml) 1,000 mls @ 999 mls/hr IV .Q1H1M ONE Stop: 07/04/20 23:21 Last Infusion: 07/05/20 00:02 Dose: 0 mls/hr Documented by: [id number] Admin: 07/04/20 22:54 Dose: 999 mls/hr Documented by: [id number] Sodium Chloride (Nss 1000ml) 1,000 mls @ 999 mls/hr IV .Q1H1M ONE Stop: 07/05/20 00:50 Last Admin: 07/05/20 00:02 Dose: 999 mls/hr Documented by: [id number] Thiamine HCl 100 mg/ Syringe 10 mls @ 2 mls/min IV NOW STA Stop: 07/05/20 00:09 Last Admin: 07/05/20 00:30 Dose: 2 mls/min Documented by: [id number] Lorazepam (Ativan) 0.5 mg in 1 mls @ 1 mls/min IV NOW STA Stop: 07/05/20 00:23 Last Admin: 07/05/20 00:30 Dose: 1 mls/min Documented by: [id number] Medical Decision Making Laboratory Data Result diagrams: 07/04/20 22:45 07/04/20 22:45 Lab Results 07/04/20 07/04/20 07/04/20 Range/Units 22:17 22:37 22:45 WBC 5.25 (4.8-10.8) K/uL RBC 4.23 (4.2-5.4) M/uL Hgb 13.8 (12.0-16.0) g/dL Hct 38.2 (37-47) % MCV 90.3 (80-100) fL MCH 32.6 (25-34) pg MCHC 36.1 H (32-36) g/dL RDW Std Deviation 48.1 H (36.4-46.3) fL RDW Coeff of Artur 14.7 H (11.5-14.5) % Plt Count 129 L (130-400) K/uL MPV 9.6 (7.4-10.4) fL Immature Gran % (Auto) 0.2 % Neut % (Auto) 78.9 % Lymph % (Auto) 17.3 % Spink % (Auto) 3.6 % Eos % (Auto) 0.0 % Baso % (Auto) 0.0 % Neut # (Auto) 4.14 (1.4-6.5) K/uL Lymph # (Auto) 0.91 L (1.2-3.4) K/uL Spink # (Auto) 0.19 (0.11-0.59) K/uL Eos # (Auto) 0.00 (0-0.5) K/uL Baso # (Auto) 0.00 (0-0.2) K/uL Immature Gran # (Auto) 0.01 (0.00-0.02) K/uL PT (9.0-12.0) Seconds INR (0.9-1.1) VBG pH (7.36-7.41) VBG pCO2 (38-50) mmHg VBG pO2 mmHg VBG HCO3 mmol/L VBG O2 Saturation % VBG Base Excess mEq/L Sodium (136-145) mmol/L Potassium (3.5-5.1) mmol/L Chloride (98-107) mmol/L Carbon Dioxide (21-32) mmol/L Anion Gap (3-11) BUN (7-18) mg/dl Creatinine (0.6-1.2) mg/dl Est Cr Clr Drug Dosing ml/min Est GFR ( Amer) Est GFR (Non-Af Amer) BUN/Creatinine Ratio (10-20) Glucose (70-99) mg/dl POC Glucose 181 H (70-99) mg/dl Osmolality (280-300) mOsm/kg Calcium (8.5-10.1) mg/dl Magnesium (1.8-2.4) mg/dl Total Bilirubin (0.2-1) mg/dl Direct Bilirubin (0-0.2) mg/dl AST (15-37) U/L ALT (12-78) U/L Alkaline Phosphatase (45-117) U/L Total Protein (6.4-8.2) gm/dl Albumin (3.4-5.0) gm/dl Lipase (73-393) U/L TSH (0.300-4.500) uIu/ml Specimen Hemolysis Urine Color Dark Yellow Urine Appearance Clear (Clear) Urine pH 5.0 (4.5-7.5) Ur Specific Martin 1.025 (1.000-1.030) Urine Protein 2+ H (Negative) Urine Glucose (UA) Negative (Negative) Urine Ketones 4+ H (Negative) Urine Blood Trace H (Negative) Urine Nitrite Negative (Negative) Urine Bilirubin 2+ H (Negative) Urine Urobilinogen Negative (Negative) Ur Leukocyte Esterase Negative (Negative) Urine WBC (Auto) 1-5 (0-5) /hpf Urine RBC (Auto) 5-10 H (0-4) /hpf U Hyaline Cast (Auto) 1-5 (0-5) /lpf U Epithel Cells (Auto) >30 H (0-5) /lpf Urine Bacteria (Auto) Negative (Negative) Salicylates (2.8-20) mg/dl Acetaminophen (10-30) ug/ml Ethyl Alcohol mg/dL (0-3) mg/dl COVID-19 Eval Order 07/04/20 07/04/20 07/04/20 Range/Units 22:45 22:45 22:45 WBC (4.8-10.8) K/uL RBC (4.2-5.4) M/uL Hgb (12.0-16.0) g/dL Hct (37-47) % MCV (80-100) fL MCH (25-34) pg MCHC (32-36) g/dL RDW Std Deviation (36.4-46.3) fL RDW Coeff of Artur (11.5-14.5) % Plt Count (130-400) K/uL MPV (7.4-10.4) fL Immature Gran % (Auto) % Neut % (Auto) % Lymph % (Auto) % Spink % (Auto) % Eos % (Auto) % Baso % (Auto) % Neut # (Auto) (1.4-6.5) K/uL Lymph # (Auto) (1.2-3.4) K/uL Spink # (Auto) (0.11-0.59) K/uL Eos # (Auto) (0-0.5) K/uL Baso # (Auto) (0-0.2) K/uL Immature Gran # (Auto) (0.00-0.02) K/uL PT (9.0-12.0) Seconds INR (0.9-1.1) VBG pH (7.36-7.41) VBG pCO2 (38-50) mmHg VBG pO2 mmHg VBG HCO3 mmol/L VBG O2 Saturation % VBG Base Excess mEq/L Sodium 139 (136-145) mmol/L Potassium 3.6 (3.5-5.1) mmol/L Chloride 101 (98-107) mmol/L Carbon Dioxide 27 (21-32) mmol/L Anion Gap 11.0 (3-11) BUN 15 (7-18) mg/dl Creatinine 1.84 H (0.6-1.2) mg/dl Est Cr Clr Drug Dosing 27.9 ml/min Est GFR ( Amer) 31.2 Est GFR (Non-Af Amer) 26.9 BUN/Creatinine Ratio 8.2 L (10-20) Glucose 161 H (70-99) mg/dl POC Glucose (70-99) mg/dl Osmolality 337 H (280-300) mOsm/kg Calcium 9.2 (8.5-10.1) mg/dl Magnesium 1.8 (1.8-2.4) mg/dl Total Bilirubin 1.2 H (0.2-1) mg/dl Direct Bilirubin 0.3 H (0-0.2) mg/dl AST 53 H (15-37) U/L ALT 70 (12-78) U/L Alkaline Phosphatase 63 (45-117) U/L Total Protein 7.7 (6.4-8.2) gm/dl Albumin 4.2 (3.4-5.0) gm/dl Lipase 107 (73-393) U/L TSH 0.363 (0.300-4.500) uIu/ml Specimen Hemolysis Urine Color Urine Appearance (Clear) Urine pH (4.5-7.5) Ur Specific Martin (1.000-1.030) Urine Protein (Negative) Urine Glucose (UA) (Negative) Urine Ketones (Negative) Urine Blood (Negative) Urine Nitrite (Negative) Urine Bilirubin (Negative) Urine Urobilinogen (Negative) Ur Leukocyte Esterase (Negative) Urine WBC (Auto) (0-5) /hpf Urine RBC (Auto) (0-4) /hpf U Hyaline Cast (Auto) (0-5) /lpf U Epithel Cells (Auto) (0-5) /lpf Urine Bacteria (Auto) (Negative) Salicylates (2.8-20) mg/dl Acetaminophen (10-30) ug/ml Ethyl Alcohol mg/dL < 3.0 (0-3) mg/dl COVID-19 Eval Order 07/04/20 07/04/20 07/05/20 Range/Units 22:46 22:46 00:07 WBC (4.8-10.8) K/uL RBC (4.2-5.4) M/uL Hgb (12.0-16.0) g/dL Hct (37-47) % MCV (80-100) fL MCH (25-34) pg MCHC (32-36) g/dL RDW Std Deviation (36.4-46.3) fL RDW Coeff of Artur (11.5-14.5) % Plt Count (130-400) K/uL MPV (7.4-10.4) fL Immature Gran % (Auto) % Neut % (Auto) % Lymph % (Auto) % Spink % (Auto) % Eos % (Auto) % Baso % (Auto) % Neut # (Auto) (1.4-6.5) K/uL Lymph # (Auto) (1.2-3.4) K/uL Spink # (Auto) (0.11-0.59) K/uL Eos # (Auto) (0-0.5) K/uL Baso # (Auto) (0-0.2) K/uL Immature Gran # (Auto) (0.00-0.02) K/uL PT 10.7 (9.0-12.0) Seconds INR 1.1 (0.9-1.1) VBG pH (7.36-7.41) VBG pCO2 (38-50) mmHg VBG pO2 mmHg VBG HCO3 mmol/L VBG O2 Saturation % VBG Base Excess mEq/L Sodium (136-145) mmol/L Potassium (3.5-5.1) mmol/L Chloride (98-107) mmol/L Carbon Dioxide (21-32) mmol/L Anion Gap (3-11) BUN (7-18) mg/dl Creatinine (0.6-1.2) mg/dl Est Cr Clr Drug Dosing ml/min Est GFR ( Amer) Est GFR (Non-Af Amer) BUN/Creatinine Ratio (10-20) Glucose (70-99) mg/dl POC Glucose (70-99) mg/dl Osmolality (280-300) mOsm/kg Calcium (8.5-10.1) mg/dl Magnesium (1.8-2.4) mg/dl Total Bilirubin (0.2-1) mg/dl Direct Bilirubin (0-0.2) mg/dl AST (15-37) U/L ALT (12-78) U/L Alkaline Phosphatase (45-117) U/L Total Protein (6.4-8.2) gm/dl Albumin (3.4-5.0) gm/dl Lipase (73-393) U/L TSH (0.300-4.500) uIu/ml Specimen Hemolysis Urine Color Urine Appearance (Clear) Urine pH (4.5-7.5) Ur Specific Martin (1.000-1.030) Urine Protein (Negative) Urine Glucose (UA) (Negative) Urine Ketones (Negative) Urine Blood (Negative) Urine Nitrite (Negative) Urine Bilirubin (Negative) Urine Urobilinogen (Negative) Ur Leukocyte Esterase (Negative) Urine WBC (Auto) (0-5) /hpf Urine RBC (Auto) (0-4) /hpf U Hyaline Cast (Auto) (0-5) /lpf U Epithel Cells (Auto) (0-5) /lpf Urine Bacteria (Auto) (Negative) Salicylates < 1.7 L (2.8-20) mg/dl Acetaminophen < 2 L (10-30) ug/ml Ethyl Alcohol mg/dL (0-3) mg/dl COVID-19 Eval Order CovFluRsv at [facility] 07/05/20 Range/Units 00:18 WBC (4.8-10.8) K/uL RBC (4.2-5.4) M/uL Hgb (12.0-16.0) g/dL Hct (37-47) % MCV (80-100) fL MCH (25-34) pg MCHC (32-36) g/dL RDW Std Deviation (36.4-46.3) fL RDW Coeff of Artur (11.5-14.5) % Plt Count (130-400) K/uL MPV (7.4-10.4) fL Immature Gran % (Auto) % Neut % (Auto) % Lymph % (Auto) % Spink % (Auto) % Eos % (Auto) % Baso % (Auto) % Neut # (Auto) (1.4-6.5) K/uL Lymph # (Auto) (1.2-3.4) K/uL Spink # (Auto) (0.11-0.59) K/uL Eos # (Auto) (0-0.5) K/uL Baso # (Auto) (0-0.2) K/uL Immature Gran # (Auto) (0.00-0.02) K/uL PT (9.0-12.0) Seconds INR (0.9-1.1) VBG pH 7.40 (7.36-7.41) VBG pCO2 42 (38-50) mmHg VBG pO2 32 mmHg VBG HCO3 25 mmol/L VBG O2 Saturation 61.8 % VBG Base Excess 0 mEq/L Sodium (136-145) mmol/L Potassium (3.5-5.1) mmol/L Chloride (98-107) mmol/L Carbon Dioxide (21-32) mmol/L Anion Gap (3-11) BUN (7-18) mg/dl Creatinine (0.6-1.2) mg/dl Est Cr Clr Drug Dosing ml/min Est GFR ( Amer) Est GFR (Non-Af Amer) BUN/Creatinine Ratio (10-20) Glucose (70-99) mg/dl POC Glucose (70-99) mg/dl Osmolality (280-300) mOsm/kg Calcium (8.5-10.1) mg/dl Magnesium (1.8-2.4) mg/dl Total Bilirubin (0.2-1) mg/dl Direct Bilirubin (0-0.2) mg/dl AST (15-37) U/L ALT (12-78) U/L Alkaline Phosphatase (45-117) U/L Total Protein (6.4-8.2) gm/dl Albumin (3.4-5.0) gm/dl Lipase (73-393) U/L TSH (0.300-4.500) uIu/ml Specimen Hemolysis Urine Color Urine Appearance (Clear) Urine pH (4.5-7.5) Ur Specific Martin (1.000-1.030) Urine Protein (Negative) Urine Glucose (UA) (Negative) Urine Ketones (Negative) Urine Blood (Negative) Urine Nitrite (Negative) Urine Bilirubin (Negative) Urine Urobilinogen (Negative) Ur Leukocyte Esterase (Negative) Urine WBC (Auto) (0-5) /hpf Urine RBC (Auto) (0-4) /hpf U Hyaline Cast (Auto) (0-5) /lpf U Epithel Cells (Auto) (0-5) /lpf Urine Bacteria (Auto) (Negative) Salicylates (2.8-20) mg/dl Acetaminophen (10-30) ug/ml Ethyl Alcohol mg/dL (0-3) mg/dl COVID-19 Eval Order Imaging Data My Impression: Chest x-ray negative. Airway clear. No pneumothorax. No consolidation. No cardiomegaly or cephalization.. No free air under the diaphragm. No fractures of the skeletal structures. ECG Data Indication: + toxicologic Rate (beats per minute): 112 Rhythm: + sinus tachycardia ECG Intervals/blocks: + Normal QT-c ECG ST segments: + Normal ST segments Additional Comments: QRS 72 MDM Narrative 2221: The patient was evaluated in room C9. A complete history and physical exam was performed Cardiac monitoring: An order was placed for continuous cardiac monitoring. The monitor shows a rate of 130 with sinus tachycardia rhythm 0000: Vital signs improved status post IV fluids and Ativan. Labs show an acute kidney injury with creatinine of 1.8. Patient has a osmolar gap of 48. No anion gap. 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 I did discuss the case with poison control. They recommend adding on a blood gas, Tylenol level and salicylate level. They stated there is only symptomatic care to be done for the patient. Patient will be given a banana bag and repeat doses of Ativan. We will admit the patient to the [facility] hospitalist team Dr. Yusuf will be notified. 0106: VBG within normal limits salicylate and Tylenol within normal limits. Impression & Plan Isopropyl alcohol poisoning, CRISTINE (acute kidney injury) Discharge Plan Visit Data Chief Complaint: Alcohol Withdrawal Stated Complaint: ALCOHOL DETOX ED Provider: Royal Mosquera Discharge Problem: Isopropyl alcohol poisoning, CRISTINE (acute kidney injury) Patient Disposition: Admitted As Inpatient Forms Stand Alone Forms: [facility], Suicide Prevention Resources Prescriptions Prescriptions: No Action citalopram 40 mg tablet 40 mg PO DAILY RF: 0 sumatriptan succinate [Imitrex] 100 mg Tablet 100 mg PO UD PRN (Reason: Migraine Headache) RF: 0 cyanocobalamin (vitamin B-12) [Vitamin B-12] 1,000 mcg Tablet 1,000 mcg PO DAILY RF: 0 levothyroxine 25 mcg tablet 25 mcg PO DAILY RF: 0 ibuprofen 200 mg Tablet 400 mg PO Q6H PRN (Reason: Pain) RF: 0 Referrals Referrals: Shelbi Maldonado MD [Primary Care Provider] -
[2020-07-05 00:26] LABS: Acetaminophen < 2 ug/ml (10-30); Salicylate < 1.7 mg/dl (2.8-20)
[2020-07-05 00:39] LABS: Base Excess VBG 0 mEq/L; HCO3 VBG 25 mmol/L; Oxygen Saturation VBG 61.8 %; PCO2 VBG 42 mmHg (38-50); PO2 VBG 32 mmHg
--- NOTE | 2020-07-05 00:40 | History & Physical Report ---
Date of Service July 05, 2020 Assessment & Plan (1) Alcohol withdrawal: ARF secondary to emesis, poor p.o. intake Alcoholic hepatitis alcoholic cirrhosis, no overt decompensation anxiety/mood disorder, at baseline as per patient hypothyroidism, euthyroid as of today's TSH Hyperglycemia rule out DM Medical telemetry ELVIRA S, DT precautions Monitor creatinine response to IVF Follow LFTs, GI consult if with significant progression Check hemoglobin A1c Social service RE discharge planning DVT prophylaxis SCDs Re: Thrombocytopenia Full code Patient requesting updates from providers. Mr. Alonso Jiménez, contact #[phone]. Text document was generated using [employer] recognition software. It may contain grammatical or spelling errors. Kindly contact undersigned for clarification of any documentation item in question. History of Present Illness Chief Complaint: Detox, alcohol withdrawal Primary Care Provider: Shelbi Maldonado MD History obtained from patient, family, and records. Medical history significant for alcoholic cirrhosis, history of alcohol withdrawal seizures, anxiety, mood disorder, hypothyroidism. Last confinement December 2023 alcohol withdrawal. Patient started drinking again last week. Stopped 2 days ago in the desire to detox. 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 Dry cough symptoms the last few weeks without chest pain or shortness of breath. No known recent COVID-19 contacts. Nausea, emesis symptoms, loose stools not diarrhea as per patient. No headache, no abdominal pain. Denies unusual depression. Patient noted to be tremulous by at home. Patient brought to ER by for possible detox. 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 Allergies Allergy/AdvReac Type Severity Reaction Status Date / Time Penicillins AdvReac Severe SEVERE Verified 07/04/20 23:40 DIARRHEA Home Medications Medication Instructions Recorded Confirmed Type citalopram 40 mg PO DAILY 07/04/20 07/04/20 History cyanocobalamin (vitamin B-12) 1,000 mcg PO DAILY 07/04/20 07/04/20 History [Vitamin B-12] ibuprofen 400 mg PO Q6H PRN 07/04/20 07/04/20 History levothyroxine 25 mcg PO DAILY 07/04/20 07/04/20 History sumatriptan succinate [Imitrex] 100 mg PO UD PRN 07/04/20 07/04/20 History Past Med/Surg History Medical History (Updated 07/05/20 @ 00:52 by Angel Mckee MD) Anxiety Cirrhosis PER RECORDS; NO RECENT ISSUES Depression Hiatal hernia Hypothyroidism Migraine Obesity Seizure 2008 X 1 EPISODE; NO ISSUES SINCE Surgical History History of section History of colonoscopy History of total knee replacement LEFT TKA= 06/25/17= SAB X 1 ATTEMPT + PNB AT [facility] Family History Father Alzheimer disease Irregular heart rhythm Mother Age related osteoporosis Social History Smoking Status: Never smoker Second Hand Exposure: No; Hx Alcohol Use: Yes Alcohol type: hard liquor Alcohol type Comment: Beni Gotti, drinking from the bottle Hx Substance Use: No Preferred Language: Portuguese Communication Ability: Effective Mini Shifter Required: No Current Living Situation: Spouse Feels Safe at Home: Yes Assistive Devices: None Review of Systems Review of Systems: As per HPI, all 10 systems reviewed, all other ROS negative Physical Exam Physical Exam: GENERAL: Slightly anxious, no respiratory distress SKIN: Normal color, warm HEENT: [place] palpebral conjunctivae, no ptosis, dry buccal mucosa NECK : Supple, no tenderness CHEST : CTA, no tenderness HEART : Tachycardic, no obvious murmurs ABDOMEN: Some distention, nontender EXTREMITIES : No LE swelling/tenderness, no other conspicuous deformities noted NEUROLOGIC : Coherent, no facial asymmetry, tremulous, no other gross focality Results & Data Results & Data ([facility]) Vital Signs (Past 12 Hours) Vital Signs Temp Pulse Resp BP Pulse Ox 07/05/20 00:30 106 H 18 121/56 L 98 07/05/20 00:00 106 H 18 121/75 97 07/04/20 23:30 105 H 19 119/73 96 07/04/20 23:00 102 H 17 121/64 96 07/04/20 22:49 103 H 16 118/83 98 07/04/20 22:38 109 H 15 98 07/04/20 22:10 36.8 C 138 H 18 132/73 97 Laboratory Results Laboratory Results WBC 5.25 K/uL (4.8-10.8) 07/04/20 22:45 RBC 4.23 M/uL (4.2-5.4) 07/04/20 22:45 Hgb 13.8 g/dL (12.0-16.0) 07/04/20 22:45 Hct 38.2 % (37-47) 07/04/20 22:45 MCV 90.3 fL (80-100) 07/04/20 22:45 MCH 32.6 pg (25-34) 07/04/20 22:45 MCHC 36.1 g/dL (32-36) H 07/04/20 22:45 RDW Std Deviation 48.1 fL (36.4-46.3) H 07/04/20 22:45 RDW Coeff of Artur 14.7 % (11.5-14.5) H 07/04/20 22:45 Plt Count 129 K/uL (130-400) L 07/04/20 22:45 MPV 9.6 fL (7.4-10.4) 07/04/20 22:45 Immature Gran % (Auto) 0.2 % 07/04/20 22:45 Neut % (Auto) 78.9 % 07/04/20 22:45 Lymph % (Auto) 17.3 % 07/04/20 22:45 Stone % (Auto) 3.6 % 07/04/20 22:45 Eos % (Auto) 0.0 % 07/04/20 22:45 Baso % (Auto) 0.0 % 07/04/20 22:45 Neut # (Auto) 4.14 K/uL (1.4-6.5) 07/04/20 22:45 Lymph # (Auto) 0.91 K/uL (1.2-3.4) L 07/04/20 22:45 Stone # (Auto) 0.19 K/uL (0.11-0.59) 07/04/20 22:45 Eos # (Auto) 0.00 K/uL (0-0.5) 07/04/20 22:45 Baso # (Auto) 0.00 K/uL (0-0.2) 07/04/20 22:45 Immature Gran # (Auto) 0.01 K/uL (0.00-0.02) 07/04/20 22:45 PT 10.7 Seconds (9.0-12.0) 07/04/20 22:46 INR 1.1 (0.9-1.1) 07/04/20 22:46 Sodium 139 mmol/L (136-145) 07/04/20 22:45 Potassium 3.6 mmol/L (3.5-5.1) 07/04/20 22:45 Chloride 101 mmol/L (98-107) 07/04/20 22:45 Carbon Dioxide 27 mmol/L (21-32) 07/04/20 22:45 Anion Gap 11.0 (3-11) 07/04/20 22:45 BUN 15 mg/dl (7-18) 07/04/20 22:45 Creatinine 1.84 mg/dl (0.6-1.2) H 07/04/20 22:45 Est Cr Clr Drug Dosing 27.9 ml/min 07/04/20 22:45 Est GFR ( Amer) 31.2 07/04/20 22:45 Est GFR (Non-Af Amer) 26.9 07/04/20 22:45 BUN/Creatinine Ratio 8.2 (10-20) L 07/04/20 22:45 Glucose 161 mg/dl (70-99) H 07/04/20 22:45 POC Glucose 181 mg/dl (70-99) H 07/04/20 22:37 Osmolality 337 mOsm/kg (280-300) H 07/04/20 22:45 Calcium 9.2 mg/dl (8.5-10.1) 07/04/20 22:45 Magnesium 1.8 mg/dl (1.8-2.4) 07/04/20 22:45 Total Bilirubin 1.2 mg/dl (0.2-1) H 07/04/20 22:45 Direct Bilirubin 0.3 mg/dl (0-0.2) H 07/04/20 22:45 AST 53 U/L (15-37) H 07/04/20 22:45 ALT 70 U/L (12-78) 07/04/20 22:45 Alkaline Phosphatase 63 U/L (45-117) 07/04/20 22:45 Total Protein 7.7 gm/dl (6.4-8.2) 07/04/20 22:45 Albumin 4.2 gm/dl (3.4-5.0) 07/04/20 22:45 Lipase 107 U/L (73-393) 07/04/20 22:45 Specimen Hemolysis 07/04/20 22:45 Urine Color Dark Yellow 07/04/20 22:17 Urine Appearance Clear (Clear) 07/04/20 22:17 Urine pH 5.0 (4.5-7.5) 07/04/20 22:17 Ur Specific [place] 1.025 (1.000-1.030) 07/04/20 22:17 Urine Protein 2+ (Negative) H 07/04/20 22:17 Urine Glucose (UA) Negative (Negative) 07/04/20 22:17 Urine Ketones 4+ (Negative) H 07/04/20 22:17 Urine Blood Trace (Negative) H 07/04/20 22:17 Urine Nitrite Negative (Negative) 07/04/20 22:17 Urine Bilirubin 2+ (Negative) H 07/04/20 22:17 Urine Urobilinogen Negative (Negative) 07/04/20 22:17 Ur Leukocyte Esterase Negative (Negative) 07/04/20 22:17 Urine WBC (Auto) 1-5 /hpf (0-5) 07/04/20 22:17 Urine RBC (Auto) 5-10 /hpf (0-4) H 07/04/20 22:17 U Hyaline Cast (Auto) 1-5 /lpf (0-5) 07/04/20 22:17 U Epithel Cells (Auto) >30 /lpf (0-5) H 07/04/20 22:17 Urine Bacteria (Auto) Negative (Negative) 07/04/20 22:17 Salicylates < 1.7 mg/dl (2.8-20) L 07/04/20 22:46 Acetaminophen < 2 ug/ml (10-30) L 07/04/20 22:46 Ethyl Alcohol mg/dL < 3.0 mg/dl (0-3) 07/04/20 22:45 COVID-19 Eval Order CovFluRsv at [facility] 07/05/20 00:07 Diagnostic Findings Chest x-ray as per my interpretation atelectasis EKG as per my interpretation : Rate 110, sinus tachycardia, normal axis, T wave abnormality septal leads
[2020-07-05] MEDS ORDERED: POTASSIUM CHLORIDE 20 MEQ in LACTATED RINGER'S 1,000 ML IV STA (00:42)
[2020-07-05] MEDS ORDERED: MAGNESIUM SULFATE / D5W 1 GM/100 ML BAG IV STA (00:42)
[2020-07-05 00:43] LABS: Thyroid Stimulating Hormone 0.363 uIu/ml (0.300-4.500)
[2020-07-05 01:09] LABS: Influenza A virus by PCR Negative (Neg); Influenza B virus by PCR Negative (Neg); RSV by PCR Negative (Neg); SARS CoV2 RNA(COVID-19) InHosp NEGATIVE (Negative)
[2020-07-05] MEDS ORDERED: ATIVAN IV ALCOHOL WITHDRAWL IV PRN (02:23)
[2020-07-05] MEDS ORDERED: XOPENEX/ATROVENT 1.25mg/0.5MG NEB COMBO NEB PRN (02:23)
[2020-07-05] MEDS ORDERED: IPRATROPIUM BROMIDE NEB SOLN 0.02% 2.5 ML VIAL INH PRN (02:23)
[2020-07-05] MEDS ORDERED: LORazepam 1 MG/2 ML VIAL IV PRN (02:23)
[2020-07-05] MEDS ORDERED: ACETAMINOPHEN 325 MG TAB PO PRN (02:23)
[2020-07-05] MEDS ORDERED: GABAPENTIN 600MG ALCOHOL WITHDRAWAL LOAD PO STA (02:23)
[2020-07-05] MEDS ORDERED: PROMETHAZINE HCL 12.5 MG in SODIUM CHLORIDE 0.9% 50 ML IV PRN (02:23)
[2020-07-05] MEDS ORDERED: LORazepam 2 MG/4 ML VIAL IV PRN (02:23)
[2020-07-05] MEDS ORDERED: oxyCODONE HCL IR 5 MG TAB (IMMEDIATE RELEASE) PO PRN (02:23)
[2020-07-05] MEDS ORDERED: LORazepam 3 MG/6 ML VIAL IV PRN (02:23)
[2020-07-05] MEDS ORDERED: LEVALBUTEROL 1.25MG/0.5ML NEB INH PRN (02:23)
[2020-07-05] MEDS: guaiFENesin 600 MG TABCR PO SCH ×3 (03:27→20:23)
[2020-07-05 05:47] LABS: Estimated Average Glucose 97 mg/dl
[2020-07-05] MEDS: LEVOTHYROXINE SODIUM 25 MCG TABLET PO SCH (06:19)
[2020-07-05 07:00] LABS: Basophils # (auto) 0.01 K/uL (0-0.2); Basophils % (auto) 0.2 %; Eosinophils # (auto) 0.07 K/uL (0-0.5); Eosinophils % (auto) 1.1 %; Hematocrit (blood only) 35.9 % (37-47); Hemoglobin 12.3 g/dL (12.0-16.0); Immature Granulocytes # (auto) 0.01 K/uL (0.00-0.02); Immature Granulocytes % (auto) 0.2 %; Lymphocytes # (auto) 2.33 K/uL (1.2-3.4); Lymphocytes % (auto) 36.5 %; Mean Corpuscular Hemoglobin 31.1 pg (25-34); Mean Corpuscular Hgb Conc 34.3 g/dL (32-36); Mean Corpuscular Volume 90.9 fL (80-100); Mean Platelet Volume 9.8 fL (7.4-10.4); Monocytes # (auto) 0.33 K/uL (0.11-0.59); Monocytes % (auto) 5.2 %; Neutrophils # (auto) 3.64 K/uL (1.4-6.5); Neutrophils % (auto) 56.8 %; Platelet Count 104 K/uL (130-400); RDW Coefficient of Variation 14.9 % (11.5-14.5); RDW Standard Deviation 49.4 fL (36.4-46.3); Red Blood Count 3.95 M/uL (4.2-5.4); White Blood Count 6.39 K/uL (4.8-10.8)
--- NOTE | 2020-07-05 07:30 | XRay Report ---
SINGLE VIEW CHEST CLINICAL HISTORY: Renal failure. FINDINGS: An AP, portable, upright chest radiograph is compared to study dated 11/23/2015. The heart i s top normal for projection. The pulmonary vasculature is noncongested. Mild atelectasis is noted at the lung bases. No airspace consolidation or large pleural effusion is identified. No pneumothorax is seen. The skeletal structures are osteopenic. There are numerous healed left-sided rib fractures. IMPRESSION: No acute cardiopulmonary abnormality. ACT 112: Negative or not required by law. Electronically signed by: Ryan Ramos M.D. 07/05/2020 7:29 AM
[2020-07-05 07:38] LABS: Albumin Level 3.5 gm/dl (3.4-5.0); BUN Creatinine Ratio 7.1 (10-20); Calcium 8.1 mg/dl (8.5-10.1); Creatinine Clr Calc Pharmacy 35.7 ml/min; Est GFR (African American) 41.2; Est GFR (Non-African American) 35.6; Potassium 3.4 mmol/L (3.5-5.1)
[2020-07-05 07:47] LABS: Albumin Globulin Ratio 1.3 (0.9-2); Bilirubin,Total 1.5 mg/dl (0.2-1); Globulin 2.6 gm/dl (2.5-4.0); Total Protein 6.1 gm/dl (6.4-8.2)
[2020-07-05] MEDS: GABAPENTIN 100 MG CAP PO SCH ×2 (08:03→14:50)
[2020-07-05] MEDS: CITALOPRAM 40 MG TAB PO SCH (08:03)
[2020-07-05] MEDS: MULTIVITAMIN TAB PO SCH (08:04)
[2020-07-05] MEDS: CYANOCOBALAMIN 500 MCG TABLET (VITAMIN B-12) PO SCH (08:04)
[2020-07-05] MEDS: FOLIC ACID 1 MG TAB PO SCH (08:04)
--- NOTE | 2020-07-05 08:05 | Electrocardiogram Report ---
Test Reason : Blood Pressure : / mmHG Vent. Rate : 112 BPM Atrial Rate : 112 BPM P-R Int : 180 ms QRS Dur : 072 ms QT Int : 336 ms P-R-T Axes : 074 004 077 degrees QTc Int : 458 ms Sinus tachycardia Otherwise normal ECG When compared with ECG of 08-DEC-2019 14:05, Vent. rate has increased BY 37 BPM Otherwise no significant change Confirmed by Thony Sullivan ([id number]) on 07/05/2020 8:05:05 AM Referred By: REFERRED SELF Confirmed By:Thony Sullivan
[2020-07-05] MEDS ORDERED: POTASSIUM CHLORIDE CRTAB 20 MEQ TABCR PO ONE (11:15)
--- NOTE | 2020-07-05 16:17 | Hospitalist Progress Note ---
Date of Service July 05, 2020 Assessment & Plan (1) Alcohol withdrawal: Alcohol level is less than 3 on admission History of alcohol withdrawal in the past Continue alcohol withdrawal protocol with gabapentin and Lorazepam Continue monitor closely for withdrawal or DT Continue folic acid and thiamine Counseling on alcohol cessation Elevated AST Mostly related to alcohol abuse AST mildly elevated on admission LFT normalizes Hypothyroidism TSH normalized Continue levothyroxine Elevated glucose Hab1c 5 BS stable Thrombocytopenia Mostly related to alcohol abuse Platelet dropped to 104 No sign of active bleeding Continue monitor CBC DVT px on SCDs/Pt ambulate (due to Thrombocytopenia) Code Status FULL Code Patient requesting updates from providers. Mr. Alonso Jiménez, contact #[phone]. Admission and Anticipated Discharge Date Admission Date: July 05, 2020 Subjective Pt was seen and examined for follow up hypertension sitting at the edge of the bed with no distress Pt said that she feels fine Denies any chest pain, palpitation, dizziness, hallucination and SOB Review of Systems Review of Systems: All systems reviewed & are unremarkable except as noted in Subjective Physical Exam Physical Exam: General- No acute distress Head- atraumatic Eyes- PERRL, EOMI, ENT- oropharynx clear Neck- supple, no JVD Lungs- clear to auscultation Heart- regular rhythm; no murmur Abdomen- normal bowel sounds, soft, nontender Extremities- no calf tenderness Neuro- alert, oriented x 3; PERRL, EOMI; no facial palsy; no dysarthria Skin- warm & dry Results & Data Results & Data ([facility]) Vital Signs (Past 12 Hours) Vital Signs Temp Pulse Pulse Resp BP Pulse Ox 07/05/20 14:57 36.8 C 73 18 117/70 98 07/05/20 10:46 36.6 C 89 18 123/73 98 07/05/20 08:00 84 07/05/20 06:55 36.3 C L 81 18 109/67 98
[2020-07-05] MEDS ORDERED: MELATONIN 3 MG TAB PO PRN (20:32)
[2020-07-06] MEDS: LEVOTHYROXINE SODIUM 25 MCG TABLET PO SCH (05:50)
[2020-07-06] MEDS ORDERED: GABAPENTIN 600 MG TAB PO SCH (06:00)
[2020-07-06] MEDS: MULTIVITAMIN TAB PO SCH (08:51)
[2020-07-06] MEDS: THIAMINE HCL 100 MG TAB PO SCH (08:51)
[2020-07-06] MEDS: CYANOCOBALAMIN 500 MCG TABLET (VITAMIN B-12) PO SCH (08:52)
[2020-07-06] MEDS: guaiFENesin 600 MG TABCR PO SCH ×2 (08:52→21:28)
[2020-07-06] MEDS: FOLIC ACID 1 MG TAB PO SCH (08:52)
[2020-07-06] MEDS: CITALOPRAM 40 MG TAB PO SCH (08:52)
[2020-07-06 09:02] LABS: Hematocrit (blood only) 34.7 % (37-47); Hemoglobin 12.1 g/dL (12.0-16.0); Mean Corpuscular Hgb Conc 34.9 g/dL (32-36); Mean Corpuscular Volume 91.8 fL (80-100); RDW Coefficient of Variation 14.7 % (11.5-14.5); RDW Standard Deviation 49.1 fL (36.4-46.3); Red Blood Count 3.78 M/uL (4.2-5.4); White Blood Count 2.68 K/uL (4.8-10.8)
[2020-07-06 09:37] LABS: BUN Creatinine Ratio 5.9 (10-20); Calcium 8.8 mg/dl (8.5-10.1); Est GFR (African American) 53.4; Potassium 3.4 mmol/L (3.5-5.1)
[2020-07-06 09:45] LABS: Mean Platelet Volume 9.8 fL (7.4-10.4); Platelet Count 67 K/uL (130-400)
[2020-07-06 09:46] LABS: Platelet Estimate Decreased (Normal)
[2020-07-06] MEDS ORDERED: POTASSIUM CHLORIDE CRTAB 20 MEQ TABCR PO STA (10:21)
[2020-07-06] MEDS ORDERED: ZOLPIDEM TARTRATE 5 MG TAB PO PRN (15:45)
--- NOTE | 2020-07-06 18:36 | Hospitalist Progress Note ---
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 less than 3 on admission (she said that she had her last drink on Thursday) History of alcohol withdrawal in the past Poison control was notified and signed off since pt stable Continue alcohol withdrawal protocol with gabapentin and Lorazepam Continue monitor closely for withdrawal or DT Continue folic acid and thiamine Counseling on alcohol cessation Elevated AST Mostly related to alcohol abuse AST mildly elevated on admission LFT normalizes Hypothyroidism TSH normalized Continue levothyroxine Elevated glucose Hab1c 5.0 BS stable Thrombocytopenia Mostly related to alcohol abuse Platelet dropped from 104 to 67 No sign of active bleeding Continue monitor CBC DVT px on SCDs/Pt ambulate (due to Thrombocytopenia) Code Status FULL Code Patient requesting updates from providers. Mr. Alonso Jiménez, contact #[phone]. Admission and Anticipated Discharge Date Admission Date: July 05, 2020 Subjective Pt was seen and examined for follow up alcohol abuse Lying in bed with no distress Pt said that she had a good night She has been walking in the hallway She said that she feels good Denies any chest pain, palpitation, dizziness, hallucination and SOB Review of Systems Review of Systems: All systems reviewed & are unremarkable except as noted in Subjective Physical Exam Physical Exam: General- No acute distress Head- atraumatic Eyes- PERRL, EOMI, ENT- oropharynx clear Neck- supple, no JVD Lungs- clear to auscultation Heart- regular rhythm; no murmur Abdomen- normal bowel sounds, soft, nontender Extremities- no calf tenderness Neuro- alert, oriented x 3; PERRL, EOMI; no facial palsy; no dysarthria Skin- warm & dry Results & Data Results & Data ([facility]) Vital Signs (Past 12 Hours) Vital Signs Temp Pulse Pulse Resp BP Pulse Ox 07/06/20 16:22 70 07/06/20 15:00 36.4 C L 68 18 110/68 97 07/06/20 11:11 36.7 C 86 18 102/63 96 07/06/20 10:38 61 07/06/20 07:26 36.7 C 76 18 111/69 96
[2020-07-07] MEDS ORDERED: GABAPENTIN 400 MG CAP PO SCH (06:00)
[2020-07-07] MEDS: LEVOTHYROXINE SODIUM 25 MCG TABLET PO SCH (06:13)
[2020-07-07 06:26] LABS: Hematocrit (blood only) 34.5 % (37-47); Hemoglobin 11.6 g/dL (12.0-16.0); Mean Corpuscular Hemoglobin 31.8 pg (25-34); Mean Corpuscular Hgb Conc 33.6 g/dL (32-36); Mean Corpuscular Volume 94.5 fL (80-100); RDW Coefficient of Variation 14.5 % (11.5-14.5); RDW Standard Deviation 49.8 fL (36.4-46.3); Red Blood Count 3.65 M/uL (4.2-5.4); White Blood Count 2.62 K/uL (4.8-10.8)
[2020-07-07 06:31] LABS: Mean Platelet Volume 9.9 fL (7.4-10.4); Platelet Count 62 K/uL (130-400)
[2020-07-07] MEDS: CITALOPRAM 40 MG TAB PO SCH (07:52)
[2020-07-07] MEDS: guaiFENesin 600 MG TABCR PO SCH (07:52)
[2020-07-07] MEDS: CYANOCOBALAMIN 500 MCG TABLET (VITAMIN B-12) PO SCH (07:52)
[2020-07-07] MEDS: FOLIC ACID 1 MG TAB PO SCH (07:52)
[2020-07-07] MEDS: MULTIVITAMIN TAB PO SCH (07:52)
[2020-07-07] MEDS: THIAMINE HCL 100 MG TAB PO SCH (07:53)
--- NOTE | 2020-07-07 11:43 | Hospitalist Progress Note ---
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 is less than 3 on admission (she said that she had her last drink on Thursday) History of alcohol withdrawal in the past Poison control was notified and signed off since pt stable Continue alcohol withdrawal protocol with gabapentin and Lorazepam Continue monitor closely for withdrawal or DT Continue folic acid and thiamine Counseling on alcohol cessation Case management gave her information about rehab Elevated AST Mostly related to alcohol abuse AST mildly elevated on admission LFT normalizes Hypothyroidism TSH normalized Continue levothyroxine Elevated glucose Hab1c 5.0 BS stable Thrombocytopenia Mostly related to alcohol abuse Platelet dropped from 104 to 67->62K No sign of active bleeding Will check CBC in 1 week DVT px on SCDs/Pt ambulate (due to Thrombocytopenia) Code Status FULL Code Patient requesting updates from providers. Mr. Alonso Jiménez, contact #[phone]. Disposition Will discharge home today Admission and Anticipated Discharge Date Admission Date: July 05, 2020 Subjective Pt was seen and examined for follow up alcohol abuse Lying in bed with no distress Pt said that she did not sleep well last night because there was too many in and out in her room She said that she feels good Denies any chest pain, palpitation, dizziness, hallucination and SOB Review of Systems Review of Systems: All systems reviewed & are unremarkable except as noted in Subjective Physical Exam Physical Exam: General- No acute distress Head- atraumatic Eyes- PERRL, EOMI, ENT- oropharynx clear Neck- supple, no JVD Lungs- clear to auscultation Heart- regular rhythm; no murmur Abdomen- normal bowel sounds, soft, nontender Extremities- no calf tenderness Neuro- alert, oriented x 3; PERRL, EOMI; no facial palsy; no dysarthria Skin- warm & dry Results & Data Results & Data ([facility]) Vital Signs (Past 12 Hours) Vital Signs Temp Pulse Pulse Resp BP Pulse Ox 07/07/20 11:39 36.4 C L 66 18 116/77 96 07/07/20 07:28 36.4 C L 66 18 116/77 96 07/07/20 06:19 78 07/07/20 05:26 73 07/07/20 04:17 36.6 C 67 18 120/73 95 07/07/20 00:27 36.4 C L 87 18 119/89 96
[2020-07-08] MEDS ORDERED: GABAPENTIN 100 MG CAP PO SCH (06:00)
--- NOTE | 2020-07-08 22:10 | Discharge Summary ---
Date of Service July 07, 2020 Admission HPI Per Admitting Provider History obtained from patient, family, and records. Medical history significant for alcoholic cirrhosis, history of alcohol withdrawal seizures, anxiety, mood disorder, hypothyroidism. Last confinement December 2023 alcohol withdrawal. Patient started drinking again last week. Stopped 2 days ago in the desire to detox. 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 Dry cough symptoms the last few weeks without chest pain or shortness of breath. No known recent COVID-19 contacts. Nausea, emesis symptoms, loose stools not diarrhea as per patient. No headache, no abdominal pain. Denies unusual depression. Patient noted to be tremulous by at home. Patient brought to ER by for possible detox. 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 Admission Exam Per Admitting Provider GENERAL: Slightly anxious, no respiratory distress SKIN: Normal color, warm HEENT: [place] palpebral conjunctivae, no ptosis, dry buccal mucosa NECK : Supple, no tenderness CHEST : CTA, no tenderness HEART : Tachycardic, no obvious murmurs ABDOMEN: Some distention, nontender EXTREMITIES : No LE swelling/tenderness, no other conspicuous deformities noted NEUROLOGIC : Coherent, no facial asymmetry, tremulous, no other gross focality Principal Diagnosis Alcohol withdrawal: Elevated AST Hypothyroidism Elevated glucose Thrombocytopenia (Elevate Platelet) Discharge Exam General- No acute distress Head- atraumatic Eyes- PERRL, EOMI, ENT- oropharynx clear Neck- supple, no JVD Lungs- clear to auscultation Heart- regular rhythm; no murmur Abdomen- normal bowel sounds, soft, nontender Extremities- no calf tenderness Neuro- alert, oriented x 3; PERRL, EOMI; no facial palsy; no dysarthria Skin- warm & dry Discharge Data Allergies Allergy/AdvReac Type Severity Reaction Status Date / Time Penicillins AdvReac Severe SEVERE Verified 07/04/20 23:40 DIARRHEA Consultations 07/04/20 23:54 ED Decision to Admit Stat Ordered Studies SINGLE VIEW CHEST CLINICAL HISTORY: Renal failure. FINDINGS: An AP, portable, upright chest radiograph is compared to study dated 11/23/2015. The heart is top normal for projection. The pulmonary vasculature is noncongested. Mild atelectasis is noted at the lung bases. No airspace consolidation or large pleural effusion is identified. No pneumothorax is seen. The skeletal structures are osteopenic. There are numerous healed left-sided rib fractures. IMPRESSION: No acute cardiopulmonary abnormality. ACT 112: Negative or not required by law. Electronically signed by: Ryan Ramos M.D. 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 Alcohol level is less than 3 on admission (she said that she had her last drink on Thursday) History of alcohol withdrawal in the past Poison control was notified and signed off since pt stable Continue alcohol withdrawal protocol with gabapentin and Lorazepam Continue monitor closely for withdrawal or DT Continue folic acid and thiamine Counseling on alcohol cessation Case management gave her information about rehab Elevated AST Mostly related to alcohol abuse AST mildly elevated on admission LFT normalizes Hypothyroidism TSH normalized Continue levothyroxine Elevated glucose Hab1c 5.0 BS stable Thrombocytopenia Mostly related to alcohol abuse Platelet dropped from 104 to 67->62K No sign of active bleeding Will check CBC in 1 week DVT px on SCDs/Pt ambulate (due to Thrombocytopenia) Code Status FULL Code Patient requesting updates from providers. Mr. Alonso Jiménez, contact #[phone]. Disposition Will discharge home today Total Time Total Time Spent Total Time Spent (In Minutes): 35 minutes Total Time Includes: Examination of the Patient, Discharge Planning, Medication Reconciliation, Communication With Other Providers and Other Discharge Plan Discharge Items Patient Disposition: Home - Self-Care Reason For Visit: ETOH WITHDRAWAL Discharge Diagnosis: Alcohol withdrawal: Elevated AST Hypothyroidism Elevated glucose Thrombocytopenia (Elevate Platelet) Activity: Resume your previous activity Non-emergency contact: Primary Care Provider Call non-emergency contact if: you have any medication questions Follow-up/Referrals: Shelbi Maldonado MD [Primary Care Provider] - (Date & Time 07/12/2020 2:20 PM Provider Shelbi Maldonado MD Department General Internal Medicine [facility] ) Diet: Regular Addtl Attending Provider Instructions: Follow up with your primary care provider Dr. Maldonado on 07/12/2020 at2:20 PM at the General Internal Medicine [facility] Counseling on alcohol cessation Please call to arrange for outpatient alcohol rehab Check CBC in 1 week to monitor your platelet count Avoid any NSAID (such as motrin, aleve, advil, naproxen, ibuprofen,...) Seek medical attention if you develop any abnormal bleeding Pending Studies at Discharge: No Stand-Alone Forms: My [facility], Smoking Cessation Medications and DC Order Prescriptions: New folic acid 1 mg Tablet 1 mg PO QAM Qty: 30 RF: 0 thiamine HCl (vitamin B1) [Vitamin B-1] 100 mg Tablet 100 mg PO QAM Qty: 30 RF: 0 Continued citalopram 40 mg tablet 40 mg PO DAILY RF: 0 sumatriptan succinate [Imitrex] 100 mg Tablet 100 mg PO UD PRN (Reason: Migraine Headache) RF: 0 cyanocobalamin (vitamin B-12) [Vitamin B-12] 1,000 mcg Tablet 1,000 mcg PO DAILY RF: 0 levothyroxine 25 mcg tablet 25 mcg PO DAILY RF: 0 Discontinued ibuprofen 200 mg Tablet 400 mg PO Q6H PRN (Reason: Pain) RF: 0 Discharge Orders: Discharge Order (Routine); Ordered 07/07/20 Ordered By: Kevin Burger Admission Data Admit Date/Time: 07/05/20 01:14 Attending Provider: Kevin Burger Admit Provider: Angel Mckee Primary Care Provider: Shelbi Maldonado Other Providers: Angel Mckee Other Interventions: Discharge Summary Assessment (RN) Last Done: 07/07/20 11:39
== END 2020-07-07 13:45 | disposition home or self-care (01) | DRG 897 ==
LOC: ED 21:58 → 2N 07-05 01:14